=== PATIENT | male | born 1940 | race Caucasian/White ===

== ENCOUNTER 2018-10-03 11:50 | Inpatient (IN) ==
[2018-10-03] MEDS ORDERED: Ipratropium/Albuterol Neb 3 ML IH ONE (12:12)
[2018-10-03] MEDS ORDERED: methylPREDNISolone 125 MG/2 ML VIAL IVP ONE (12:12)
--- NOTE | 2018-10-03 12:12 | Emergency Department Note ---
Disposition Clinical Impression: Acute exacerbation of chronic obstructive airways disease, Chest mass Disposition: Admitted As Inpatient Condition: Good Time of Disposition: 16:49 General Adult HPI - General Stated complaint: chest pain, stroke like symtpoms Time Seen by Provider: 10/03/18 11:53 Source: patient, family, EMS Mode of arrival: EMS Limitations: no limitations Nursing Notes Reviewed: Yes Vital Signs Reviewed: Yes - History of Present Illness HPI Narrative: Male patient presents emergency complaining of shortness of breath that started last night. Does have history of COPD. Is supposed to be on oxygen but states it does not really help him so he does not wear. Has been taking his inhalers. Patient complains of back pain that is chronic. He does report a cough. He is reporting a three-day history of right sided blurred vision. No loss of vision. No pain. Also generalized weakness. Patient states that his shortness of breath got worse this morning - Related Data Home Medications Medication Instructions Recorded Confirmed Omeprazole [PriLOSEC] 20 mg PO DAILY 12/24/16 10/03/18 Tizanidine HCl [Zanaflex] 4 mg PO TID PRN 12/24/16 10/03/18 Albuterol Sulfate [Albuterol 1 - 2 puff IH Q4-6H PRN 10/03/18 10/03/18 Inhaler] Fluticasone Propionate Nasal 1 - 2 spray NS DAILY PRN 10/03/18 10/03/18 [Flonase] Guaifenesin/Dm/Pseudoephedrine 1 tab PO Q6H PRN 10/03/18 10/03/18 [Capmist Dm Tablet] Ipratropium/Albuterol Neb [Duoneb] 3 ml IH Q4HR PRN 10/03/18 10/03/18 Allergies Allergy/AdvReac Type Severity Reaction Status Date / Time cetirizine [From Zyrtec] Allergy See Verified 12/24/16 07:51 Comments clonazepam [From Klonopin] Allergy Nausea Verified 12/24/16 07:51 lisinopril Allergy See Verified 12/24/16 07:51 Comments quinine Allergy Nausea Verified 12/24/16 07:51 All systems ED: reviewed and negative except as stated. Review of Systems: As Per HPI Constitutional: Denies: fever, chills Eyes: Reports: vision change (Decreased vision and blurred vision in the right eye). Denies: eye pain Cardiovascular: Denies: chest pain Respiratory: Reports: cough, dyspnea, sputum production Gastrointestinal: Denies: abdominal pain, nausea, vomiting, diarrhea Genitourinary: Denies: urgency, dysuria, frequency, hematuria Musculoskeletal: Reports: back pain Past Medical History - Past Medical History Attestation: Yes The following information was validated with the patient. Source: patient Medical history: Reports: COPD, GERD, hypertension Surgical history: Reports: no surgical history Psychiatric history: Reports: no psych history - Social History Smoking Status: Former smoker Smokeless Tobacco Status: No Alcohol use: Reports: none Drug use: Reports: none Physical Exam - General Limitations: no limitations General appearance: alert, in distress (Appears to be short of breath) - Head Head exam: atraumatic, normocephalic, normal inspection - Eye Eye exam: Present: normal appearance, PERRL, EOMI - ENT ENT exam: normal exam, normal oropharynx, mucous membranes moist - Neck Neck exam: Present: normal inspection, full ROM, trachea midline - Chest Chest inspection: Present: normal inspection, symmetric chest wall rise - Respiratory Respiratory exam: Present: wheezes (Expiratory), other (Decreased lung sounds in the bases.) - Cardiovascular Cardiovascular exam: Present: regular rate, normal rhythm, normal heart sounds - Abdominal Exam Abdominal exam: Present: soft, Non-Tender. Absent: tenderness, distention, guarding, rebound, rigidity, organomegaly - Extremities Exam Extremities exam: Present: normal inspection, full ROM, normal capillary refill. Absent: tenderness, pedal edema, calf tenderness - Back Exam Back exam: Present: tenderness (The paraspinal muscles throughout. No midline tenderness. No signs of trauma. No ecchymosis or swelling.) - Neurological Exam Neurological exam: Present: alert, oriented X3 - Psychiatric Psychiatric exam: Present: anxious - Skin Skin exam: Present: warm, dry, intact, normal color. Absent: rash, cyanosis, diaphoresis Course Course Narrative: Patient was given 3 DuoNeb's and steroids for likely COPD exacerbation. On chest x-ray large lung masses noted. We did get a CT of his chest with contrast as well as a CTA of his head and neck secondary to his blurred vision in the right eye. He also did a bedside ultrasound performed by me and witnessed by Dr. Bryant which did not show any significant abnormalities of the right eye. Patient denies any trauma. He denies any vision loss. He denies any weakness one side of his body or the other. This is generalized weakness. Does report shortness breath got significantly worse last night. The family is concerned that there is possibly a mass near his rectum today while the was given him a bath. We did inspect this area with no masses found. The was unable to find this as well. We admitted the patient to the hospitalist prior to the CTA findings being completed however they were following with this and I did speak with Dr. Dial he was made aware of the CT findings. Vital Signs Temperature 97.6 F 10/03/18 12:03 Pulse Rate 103 10/03/18 12:03 Respiratory Rate 22 10/03/18 12:03 Blood Pressure 164/70 10/03/18 12:03 O2 Sat by Pulse Oximetry 99 10/03/18 12:03 Temperature 97.4 F L 10/03/18 18:50 Pulse Rate 105 10/03/18 18:50 Respiratory Rate 15 10/03/18 18:50 Blood Pressure 137/73 10/03/18 20:52 O2 Sat by Pulse Oximetry 94 10/03/18 21:01 Oxygen Delivery Oxygen Delivery Room Air Medical Decision Making - Medical Records Medical records reviewed: Yes I reviewed the patient's medical records. - Lab Data Lab results reviewed: Yes I reviewed the patient's lab results. Result diagrams: 10/03/18 12:07 10/03/18 12:07 Lab Results 10/03/18 10/03/18 10/03/18 Range/Units 12:07 12:07 12:07 WBC 19.2 H (4.3-11.1) K/mcL RBC 3.35 L (4.19-5.50) M/mcL Hgb 9.7 L (12.9-16.9) g/dL Hct 31.3 L (37.5-50.1) % MCV 93.4 (83.0-100.0) fL MCH 29.0 (28.0-33.3) pg MCHC 31.0 L (31.6-35.5) g/dL RDW 15.8 H (11.5-14.5) % Plt Count 421 H (140-400) K/mcL MPV 9.2 L (9.4-12.4) fL Immature Gran % 0.5 (0-4) % Seg Neutrophils % 66.9 % Lymphocytes % 7.5 % Monocytes % 15.7 % Eosinophils % 8.2 % Basophils % 1.2 % Neutrophils # 12.9 H (1.6-8.9) K/mcL Lymphocytes # 1.5 (0.6-4.6) K/mcL Monocytes # 3.0 H (0.0-1.3) K/mcL Eosinophils # 1.6 H (0.0-0.6) K/mcL Basophils # 0.2 (0.0-0.2) K/mcL Sodium 132 L (136-145) mEq/L Potassium 4.0 (3.5-5.1) mEq/L Chloride 90 L (98-107) mEq/L Carbon Dioxide 32 H (23-29) mEq/L BUN 14 (8-23) mg/dL Creatinine 0.86 (0.70-1.30) mg/dL Est GFR ( Amer) > 60 (> 60) Est GFR (Non-Af Amer) > 60 (> 60) BUN/Creatinine Ratio 16 (6-26) Glucose 117 H (70-105) mg/dL Calculated Osmolality 276 L (280-300) Lactic Acid (0.5-2.2) mmol/L Calcium 9.8 (8.6-10.3) mg/dL Troponin I 0.03 (< 0.04) ng/mL B-Natriuretic Peptide 161 H (Less than 100) pg/mL 10/03/18 10/03/18 Range/Units 12:21 14:05 WBC (4.3-11.1) K/mcL RBC (4.19-5.50) M/mcL Hgb (12.9-16.9) g/dL Hct (37.5-50.1) % MCV (83.0-100.0) fL MCH (28.0-33.3) pg MCHC (31.6-35.5) g/dL RDW (11.5-14.5) % Plt Count (140-400) K/mcL MPV (9.4-12.4) fL Immature Gran % (0-4) % Seg Neutrophils % % Lymphocytes % % Monocytes % % Eosinophils % % Basophils % % Neutrophils # (1.6-8.9) K/mcL Lymphocytes # (0.6-4.6) K/mcL Monocytes # (0.0-1.3) K/mcL Eosinophils # (0.0-0.6) K/mcL Basophils # (0.0-0.2) K/mcL Sodium (136-145) mEq/L Potassium (3.5-5.1) mEq/L Chloride (98-107) mEq/L Carbon Dioxide (23-29) mEq/L BUN (8-23) mg/dL Creatinine (0.70-1.30) mg/dL Est GFR ( Amer) (> 60) Est GFR (Non-Af Amer) (> 60) BUN/Creatinine Ratio (6-26) Glucose (70-105) mg/dL Calculated Osmolality (280-300) Lactic Acid 2.2 2.6 H (0.5-2.2) mmol/L Calcium (8.6-10.3) mg/dL Troponin I (< 0.04) ng/mL B-Natriuretic Peptide (Less than 100) pg/mL - Radiology Data Radiology results reviewed: Yes I reviewed the patient's radiology results. Chest X-Ray 10/03/18 12:12 IMPRESSION: Large 8.2 x 5.9 cm left perihilar mass. Recommend CT chest with intravenous contrast for further evaluation. D/ / 10/03/2018 12:37:58 Aureliano Vicente MD / [facility] Interpreting Provider: Aureliano Vicente MD Head CT 10/03/18 12:14 IMPRESSION: No acute intracranial abnormality. Diffuse atrophic changes with findings suggesting chronic microvascular ischemia D/ / Christ Mcdaniel MD / Christ Mcdaniel MD Interpreting Provider: Christ Mcdaniel MD - EKG Data EKG #1 EKG attestation: Yes I reviewed and interpreted this EKG. EKG results narrative: Normal sinus rhythm at a rate of 98. IN interval is 164. QRS duration is 94. QT is 358. QTC is 458. No signs of acute ischemia. Good R-wave progression. No signs of WPW or Brugada. No previous EKG to compare to. Attestation Statement - Attestation Attestation: I, Travis Bryant, examined this patient and my medical decision-making was reviewed with the TECHNICAL ENGINEER/PA/Advanced Practice Nurse/Resident Physician. I agree with the documented findings, disposition and treatment plan as described except to the extent set forth below. 77-year-old male presents emergency Department with concerns of vision changes over the past 3 days. He also reports increased difficulty in breathing. Patient states his vision in the right eye is blurred, denies recent trauma. There is not diplopia. Bedside ultrasound performed by my self and the resident did not show evidence of retinal or vitreous detachment, lens is not dislocated. Chest x-ray shows likely large mass. CTA of the head, neck, chest shows likely metastatic disease. No intracranial hemorrhage present and imaging. Patient was updated regarding CT results. He will be admitted to hospitalist for further care and evaluation.I reviewed the EKG with the resident and agree with the interpretation.
[2018-10-03 12:43] LABS: Basophils # 0.2 K/mcL (0.0-0.2); Basophils % 1.2 %; Eosinophils # 1.6 K/mcL (0.0-0.6); Eosinophils % 8.2 %; Hematocrit 31.3 % (37.5-50.1); Hemoglobin 9.7 g/dL (12.9-16.9); Immature Granulocytes % 0.5 % (0-4); Lymphocytes # 1.5 K/mcL (0.6-4.6); Lymphocytes % 7.5 %; Mean Corpuscular Volume 93.4 fL (83.0-100.0); Mean Platelet Volume 9.2 fL (9.4-12.4); Monocytes % 15.7 %; Neutrophils # 12.9 K/mcL (1.6-8.9); Platelet Count 421 K/mcL (140-400); Red Blood Count 3.35 M/mcL (4.19-5.50); Red Cell Distribution Width 15.8 % (11.5-14.5); Segmented Neutrophils % 66.9 %; White Blood Count 19.2 K/mcL (4.3-11.1)
[2018-10-03 13:17] LABS: BUN/Creatinine Ratio 16 (6-26); Blood Urea Nitrogen 14 mg/dL (8-23); Calcium 9.8 mg/dL (8.6-10.3); Carbon Dioxide 32 mEq/L (23-29); Chloride 90 mEq/L (98-107); Glucose 117 mg/dL (70-105); Osmolality,Calculated 276 (280-300); Sodium 132 mEq/L (136-145); Troponin I 0.03 ng/mL (< 0.04); eGFR For African Americans > 60 (> 60); eGFR For Non-African Americans > 60 (> 60)
[2018-10-03] MEDS ORDERED: Isovue-370 500 ML BOTTLE IVP ONE ×2 (13:41→13:42)
[2018-10-03] MEDS ORDERED: *HR* HYDROmorphone (PF) 1 MG/ML SYRINGE IVP STA (14:06)
--- NOTE | 2018-10-03 14:52 | Internal Med History&Physical ---
<Ayad Dial - Last Filed: 10/03/18 18:40> Date of Encounter: 10/03/18 Internal Medicine - H&P: HPI History of present illness: Mr. Resendiz is a 77 year old male Past Med Surg Social Fam HX - Additional Family History Additional family history: History reviewed and noncontributory. Internal Medicine - H&P: Meds Omeprazole [PriLOSEC] 20 mg PO DAILY 12/24/16 [History] Tizanidine HCl [Zanaflex] 4 mg PO TID PRN 12/24/16 [History] Albuterol Sulfate [Albuterol Inhaler] 1 - 2 puff IH Q4-6H PRN 10/03/18 [History] Fluticasone Propionate Nasal [Flonase] 1 - 2 spray NS DAILY PRN 10/03/18 [History] Guaifenesin/Dm/Pseudoephedrine [Capmist Dm Tablet] 1 tab PO Q6H PRN 10/03/18 [History] Ipratropium/Albuterol Neb [Duoneb] 3 ml IH Q4HR PRN 10/03/18 [History] Allergy/AdvReac Type Severity Reaction Status Date / Time cetirizine [From Zyrtec] Allergy See Verified 12/24/16 07:51 Comments clonazepam [From Klonopin] Allergy Nausea Verified 12/24/16 07:51 lisinopril Allergy See Verified 12/24/16 07:51 Comments quinine Allergy Nausea Verified 12/24/16 07:51 All Systems PM: A 10-system review of systems was performed and is negative for pertinent findings except as documented above in the HPI. - Constitutional Vitals: Temp Pulse Resp BP Pulse Ox 97.6 F 99 20 183/92 95 10/03/18 17:24 10/03/18 17:24 10/03/18 17:24 10/03/18 17:24 10/03/18 17:24 Internal Med - H&P Results - Labs CBC & Chem 7: 10/03/18 12:07 10/03/18 12:07 Labs: Short CBC 10/03/18 Range/Units 12:07 WBC 19.2 H (4.3-11.1) K/mcL Hgb 9.7 L (12.9-16.9) g/dL Hct 31.3 L (37.5-50.1) % Plt Count 421 H (140-400) K/mcL Neutrophils # 12.9 H (1.6-8.9) K/mcL BMP 10/03/18 12:07 Sodium 132 L Potassium 4.0 Chloride 90 L Carbon Dioxide 32 H BUN 14 Creatinine 0.86 Glucose 117 H Calcium 9.8 Cardiac Enzymes 10/03/18 Range/Units 12:07 Troponin I 0.03 (< 0.04) ng/mL Urine 10/03/18 Range/Units 17:53 Urine Color Yellow (Yellow) Urine Clarity Clear (Clear) Urine pH 7.5 (5.0-8.0) pH Units Ur Specific [place] > 1.030 H (1.010-1.025) Urine Protein 30 H (Neg-Trace) mg/dL Urine Glucose (UA) Normal (Normal) mg/dL - Impressions ITS Impressions Chest X-Ray 10/03/18 12:12 IMPRESSION: Large 8.2 x 5.9 cm left perihilar mass. Recommend CT chest with intravenous contrast for further evaluation. D/ / 10/03/2018 12:37:58 Aureliano Vicente MD / [facility] Interpreting Provider: Aureliano Vicente MD Head CT 10/03/18 12:14 IMPRESSION: No acute intracranial abnormality. Diffuse atrophic changes with findings suggesting chronic microvascular ischemia D/ / Christ Mcdaniel MD / Christ Mcdaniel MD Interpreting Provider: Christ Mcdaniel MD Chest CT 10/03/18 13:41 IMPRESSION: 1. Large mass in the left upper lobe abutting both the mediastinum and the anterior pleural surface. Pattern is suspected to represent bronchogenic carcinoma. Pulmonary follow-up is recommended with tissue sampling. 2. Multiple tiny solid nodules are otherwise observed within both the left upper and lower lobes, of concern for metastatic disease. 3. Mediastinal lymph node enlargement also suspected to be metastatic. 4. Numerous ill-defined lesions are scattered throughout the visualized liver also suspected to represent metastatic disease. D/ / Jayro Harrison MD / Jayro Harrison MD Interpreting Provider: Jayro Harrison MD Head CTA 10/03/18 13:42 IMPRESSION: 1. No hemodynamically significant stenosis or branch occlusion in the cervical arterial circulation. 2. Calcified atherosclerotic plaque in the cavernous segments of the internal carotid arteries bilaterally resulting in moderate cavernous ICA stenosis. 3. No additional hemodynamically significant stenosis or branch occlusion in the intracranial arterial circulation. 4. Partial visualization of left upper lobe mass. Please refer to separate chest CT report regarding pulmonary findings. D/ / 10/03/2018 15:52:03 William Klein MD / [facility] Interpreting Provider: William Klein MD Neck CTA 10/03/18 13:42 IMPRESSION: 1. No hemodynamically significant stenosis or branch occlusion in the cervical arterial circulation. 2. Calcified atherosclerotic plaque in the cavernous segments of the internal carotid arteries bilaterally resulting in moderate cavernous ICA stenosis. 3. No additional hemodynamically significant stenosis or branch occlusion in the intracranial arterial circulation. 4. Partial visualization of left upper lobe mass. Please refer to separate chest CT report regarding pulmonary findings. D/ / 10/03/2018 15:52:03 William Klein MD / [facility] Interpreting Provider: William Klein MD - Assessment and Plan (1) Pneumonia Current Visit: Yes Status: Suspected Qualifiers: Pneumonia type: due to other aerobic Gram-negative bacteria Laterality: left Lung location: upper lobe of lung Qualified Code(s): J15.6 - Pneumonia due to other Gram-negative bacteria (2) Mass of upper lobe of left lung Current Visit: Yes Status: Acute (3) COPD (chronic obstructive pulmonary disease) Current Visit: Yes Status: Chronic Qualifiers: COPD type: emphysema Emphysema type: panlobular Qualified Code(s): J43.1 - Panlobular emphysema (4) Chronic respiratory failure with hypoxia Current Visit: Yes Status: Chronic (5) Anemia Current Visit: Yes Status: Suspected Qualifiers: Anemia type: other cause Other causes of anemia: chronic disease, neoplastic Qualified 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 (6) Tobacco use Current Visit: Yes Status: Chronic (7) Hyponatremia Current Visit: Yes Status: Acute (8) HTN (hypertension) Current Visit: Yes Status: Chronic Qualifiers: Hypertension type: essential hypertension Qualified Code(s): I10 - Essential (primary) hypertension - Time Spent With Patient Total time spent is greater than 50% in coordination of care (as documented) at patient's floor/unit and/or counseling patient: - Attending Attestation I examined this patient and my medical decision-making was reviewed with the Resident Physician on 10/03/18. I agree with the documented findings, disposition and treatment plan as described except to the extent set forth below. Mr Resendiz is 77 y/o male presented to ED with complaints of worsening dyspnea. He is very difficult to obtain history. He has had progressive dyspnea and pain over last couple weeks. No fever or chills. No CP. No GI issues. Does not eat well at home. is at bedside. Has hx of chronic resp failure and is to wear oxygen but does not consistently. Has had 3 days of blurry vision R eye - was stroke alert in ED. Stroke work up negative but found to have large BIBIANA mass. CT shows adenopathy and presumed liver mets. At this time he is feeling baseline. Exam - comfortable at rest. Mucus membranes moist Heart reg with grade 3/6 systolic murmur consistent with . Abd non tender. Decreased breath sounds on L. Plan: Supportive care. NPO midnight. Pulm consult - biopsy. Echo for murmur. Further plan pending results Has leukocytosis - could have component of pneumonia and/or UTI. Abx started. <Gisela Perera - Last Filed: 10/03/18 21:51> Date of Encounter: 10/03/18 Time of Encounter: 15:00 Internal Medicine - H&P: HPI Chief complaint: shortness of breath Admitted From: Home History of present illness: Mr. Resendiz is a 77 year old male with history of COPD, CAD ([facility] 12/2016 no stents), HTN, GERD, and prostate disease who presents by EMS for increased shortness of breath x 2 weeks and blurred vision from right eye (which he denied at time of my exam). Pt's reports his shortness of breath has been present for weeks, started getting worse over the last few days, and became significan tly worse overnight. Pt denies orthopnea. Although pt is supposed to wear 2L oxygen continuously, reports he doesn't wear it and relies on his albuterol nebulizer. Normally pt uses his nebulizer once a day, but used it 3-4x last night. No increase in cough or sputum production from patient's baseline. Denies fever, but admits to "freezing" over last few days, states he was very warm to the touch and his bedsheets have been drenched with sweat lately. Pt has also been sleeping significantly more than normal over the last several weeks, his appetite has decreased, and family reports he's had increasing weakness over the last several weeks as well. Per the patient's , he has gone to his family doctor several times over the last few months for antibiotics, steroids, and "cough pills"--unclear when he last received these. On arrival to the emergency department, pt was afebrile, HR 103, RR 22, 99% room air. Stoke alert was called d/t his complaints of right eye blurriness. CT head negative for acute intracranial abnormalities, CTA head/neck negative for hemodynamically significant occlusions or stenosis. CXR significant for 8.2 x 5.9 cm left perihilar mass. CT chest showed large mass of left upper lobe, many small solid nodules throughout left lung, enlarged mediastinal lymph nodes, and multiple poorly-defined liver lesions. Labs significant for WBC 19.2, Hgb 9.7, platelets 421, Na 132, bicarb 32, lactic acid 2.0 -> 2.4 -> 1.4, negative troponin. He was admitted to the hospitalist service for further evaluation and management. Past Med Surg Social Fam HX - Past Medical History Medical history: COPD, GERD, hypertension Psychiatric history: no psych history - Past Surgical History Surgical History: no surgical history - Social History Smoking Status: Former smoker Smokeless Tobacco Status: No Alcohol use: none Drug use: none All Systems PM: A 10-system review of systems was performed and is negative for pertinent findings except as documented above in the HPI. - Constitutional Constitutional: anorexia, chills, excessive sweating, fatigue, weakness, no fever(s) - EENT Eyes: blurry vision (right) - Cardiovascular Cardiovascular ROS IM: chest pain (left and down left arm), dyspnea on exertion - Respiratory Respiratory: cough, dyspnea, dyspnea on exertion, chest congestion, no excessive phlegm production, no change in phlegm color - Gastrointestinal Gastrointestinal: abdominal pain (lower), no diarrhea, no hematochezia, no melena - Musculoskeletal Musculoskeletal ROS IM: back pain (chronic) - Neurological Neurological ROS: abnormal gait, behavioral changes, disequilibrium, no focal weakness - Constitutional Vitals: Temp Pulse Resp BP Pulse Ox 97.6 F 103 18 159/75 97 10/03/18 12:03 10/03/18 12:03 10/03/18 12:22 10/03/18 12:22 10/03/18 12:22 Exam: Gen: tired-appearing, alert Head: normocephalic, atraumatic Eyes: PERRL, EOMI Neck: supple Cardio: RRR, systolic murmur over aortic listening post, +s1/s2, no peripheral edema, no carotid bruits Pulm: Decreased breath sound bilaterally, no rhonchi, no wheezes, no rales, no respiratory distress Abd: obese, soft, nontender Neuro: AAO x 3, CN II-XII grossly intact, moves all extremities spontaneously, no facial droop, no focal neuro deficit Ext: no calf pain, no cyanosis, cool Skin: pale, intact Psych: cooperative with exam, answers questions appropriately Internal Med - H&P Results - Labs CBC & Chem 7: 10/03/18 12:07 10/03/18 12:07 Labs: Short CBC 10/03/18 Range/Units 12:07 WBC 19.2 H (4.3-11.1) K/mcL Hgb 9.7 L (12.9-16.9) g/dL Hct 31.3 L (37.5-50.1) % Plt Count 421 H (140-400) K/mcL Neutrophils # 12.9 H (1.6-8.9) K/mcL BMP 10/03/18 12:07 Sodium 132 L Potassium 4.0 Chloride 90 L Carbon Dioxide 32 H BUN 14 Creatinine 0.86 Glucose 117 H Calcium 9.8 Cardiac Enzymes 10/03/18 Range/Units 12:07 Troponin I 0.03 (< 0.04) ng/mL - Impressions ITS Impressions Chest X-Ray 10/03/18 12:12 IMPRESSION: Large 8.2 x 5.9 cm left perihilar mass. Recommend CT chest with intravenous contrast for further evaluation. D/ / 10/03/2018 12:37:58 Aureliano Vicente MD / [facility] Interpreting Provider: Aureliano Vicente MD Head CT 10/03/18 12:14 IMPRESSION: No acute intracranial abnormality. Diffuse atrophic changes with findings suggesting chronic microvascular ischemia D/ / Christ Mcdaniel MD / Christ Mcdaniel MD Interpreting Provider: Christ Mcdaniel MD - Assessment and Plan (1) Mass of left lung Current Visit: Yes Status: Acute Assessment and plan: Lung mass concerning for malignancy with possible mets. CXR shows 8.2 x 5.9 cm left perihilar mass. CT chest shows large mass left upper lobe concerning for bronchogenic carcinoma; multiple tiny solid nodules within BIBIANA and LLL; mediastinal lymph node enlargem ent; scattered liver lesions. Pulmonology consult placed. NPO at midnight for possible bronchoscopy tomorrow. (2) Leukocytosis Current Visit: Yes Status: Acute Assessment and plan: WBC 19.2 on admission, labs performed earlier this month show WBC 13.9 Neutrophil predominant. Infectious etiology (PNA) vs recent steroid use vs ? Recheck with morning labs. Urine and blood cultures ordered. Zosyn started empirically for treatment of pot-obstructive pneumonia. Qualifiers: Leukocytosis type: unspecified Qualified Code(s): D72.829 - Elevated white blood cell count, unspecified (3) Hyponatremia Current Visit: Yes Status: Acute Assessment and plan: Mild hyponatremia on admission Euvolemic on exam Na 132, calculated osmolality 276, urine Na 100, urine osmolality 611 Possible SIADH given CXR and CT imaging of lung mass Monitor with morning labs. (4) Chronic respiratory failure with hypoxia Current Visit: Yes Status: Chronic Assessment and plan: History of COPD, non-compliance with supplemental oxygen. SpO2 94% on 2L nasal cannula Continue supplemental oxygen by nasal cannula Scheduled duonebs and PRN albuterol nebs (5) Anemia Current Visit: Yes Status: Acute Assessment and plan: Unknown chronicity, unknown baseline. Hgb 9.7 on admission, Hgb 10.9 earlier this month. No overt signs of acute bleed, pt hemodynamically stable. Recheck on morning labs and monitor for signs of blood loss. Qualifiers: Anemia type: other cause Other causes of anemia: chronic disease, neoplastic Qualified 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 (6) COPD (chronic obstructive pulmonary disease) Current Visit: Yes Status: Chronic Assessment and plan: Doubt acute exacerbation, cough and sputum production are at his baseline. Home oxygen prescription to wear 2L at all times, doesn't use his home O2. Albuterol nebulizers PRN and duonebs scheduled Qualifiers: COPD type: emphysema Emphysema type: panlobular Qualified Code(s): J43.1 - Panlobular emphysema (7) Tobacco use Current Visit: Yes Status: Chronic Assessment and plan: Smoked at least 1 ppd for > 50 years. states pt would smoke 2-3 ppd when he was in his 20's. - Time Spent With Patient Total time spent is greater than 50% in coordination of care (as documented) at patient's floor/unit and/or counseling patient:
[2018-10-03] MEDS ORDERED: Naloxone 0.4 MG/ML INJ IVP PRN (16:00)
[2018-10-03] MEDS ORDERED: Albuterol 2.5 MG/3 ML NEBULIZER IH PRN (17:12)
[2018-10-03] MEDS ORDERED: 0.9 % Sodium Chloride 1,000 ML IVC SCH (18:00)
[2018-10-03 18:13] LABS: Bilirubin,Urine Negative (Negative); Blood,Urine Negative (Negative); Clarity,Urine Clear (Clear); Color,Urine Yellow (Yellow); Glucose,Urine (UA) Normal (Normal); Ketones,Urine Negative (Negative); Leukocyte Esterase,Urine Negative (Negative); Nitrite,Urine Negative (Negative); PH,Urine 7.5 pH Units (5.0-8.0); Protein,Urine 30 mg/dL (Neg-Trace); Specific Gravity,Urine > 1.030 (1.010-1.025); Urobilinogen,Urine Normal (Normal)
[2018-10-03 18:14] LABS: Bacteria,Urine None Seen per hpf (None-Few); Hyaline Casts,Urine None Seen per lpf (None-Few); Squamous Epithelial Cell,Urine Many per lpf (None-Few)
[2018-10-03] MEDS ORDERED: Acetaminophen 325 MG TABLET PO PRN (18:14)
[2018-10-03] MEDS ORDERED: Fluticasone Propionate Nasal 50 MCG/SPRAY BOTTLE NS PRN (18:16)
[2018-10-03] MEDS: *HR* OxyCODONE Immed Rel 5 MG TABLET PO PRN (18:26)
[2018-10-03] MEDS ORDERED: tiZANidine 4 MG TABLET PO PRN (18:50)
[2018-10-03] MEDS: Ipratropium/Albuterol Neb 3 ML IH SCH (23:02)
[2018-10-04] MEDS: *HR* OxyCODONE Immed Rel 5 MG TABLET PO PRN ×3 (02:34→15:58)
[2018-10-04] MEDS: Ipratropium/Albuterol Neb 3 ML IH SCH ×4 (04:02→22:20)
[2018-10-04 04:38] LABS: Basophils # 0.1 K/mcL (0.0-0.2); Basophils % 0.3 %; Hematocrit 30.7 % (37.5-50.1); Hemoglobin 9.6 g/dL (12.9-16.9); Immature Granulocytes % 1.1 % (0-4); Lymphocytes # 0.8 K/mcL (0.6-4.6); Mean Corpuscular HGB Conc 31.3 g/dL (31.6-35.5); Mean Corpuscular Hemoglobin 28.6 pg (28.0-33.3); Mean Corpuscular Volume 91.4 fL (83.0-100.0); Mean Platelet Volume 9.2 fL (9.4-12.4); Monocytes # 2.2 K/mcL (0.0-1.3); Monocytes % 11.1 %; Neutrophils # 16.8 K/mcL (1.6-8.9); Platelet Count 425 K/mcL (140-400); Red Blood Count 3.36 M/mcL (4.19-5.50); Red Cell Distribution Width 15.5 % (11.5-14.5); Segmented Neutrophils % 83.5 %; White Blood Count 20.1 K/mcL (4.3-11.1)
[2018-10-04 04:47] LABS: INR 1.3; Prothrombin Time 14.5 Seconds (9.4-12.1)
[2018-10-04 04:49] LABS: Activated Partial Thrombo Time 31.2 Seconds (26.0-36.0)
[2018-10-04 04:56] LABS: Alanine Aminotransferase 23 Units/L (7-52); Albumin 3.1 g/dL (3.5-5.7); Albumin/Globulin Ratio 0.8 (1.1-2.2); Alkaline Phosphatase 92 Units/L (34-104); Aspartate Amino Transferase 15 Units/L (13-39); BUN/Creatinine Ratio 20 (6-26); Bilirubin,Total 0.5 mg/dL (0.3-1.0); Blood Urea Nitrogen 14 mg/dL (8-23); Calcium 9.8 mg/dL (8.6-10.3); Carbon Dioxide 28 mEq/L (23-29); Chloride 93 mEq/L (98-107); Globulin 4.1 g/dL (2.4-3.5); Glucose 148 mg/dL (70-105); Osmolality,Calculated 271 (280-300); Potassium 4.5 mEq/L (3.5-5.1); Sodium 129 mEq/L (136-145); Total Protein 7.2 g/dL (6.4-8.9); eGFR For African Americans > 60 (> 60); eGFR For Non-African Americans > 60 (> 60)
[2018-10-04] MEDS: *HR* Heparin 5,000 UNIT/ML VIAL SQ SCH ×2 (05:06→17:18)
--- NOTE | 2018-10-04 06:54 | Pulmonology Consult Note ---
Date of Encounter: 10/04/18 Time of Encounter: 06:30 Assessment and Plan (1) Mass of upper lobe of left lung Current Visit: Yes Status: Acute Patient is scheduled for a radial endobronchial ultrasound tomorrow morning at 7:45 AM to keep nothing by mouth after midnight. Most likely looks like small cell lung cancer needs outpatient PET CT scan suspicious for extensive small cell. If it is extensive small cell lung cancer patient has poor prognosis (2) Acute and chronic respiratory failure Current Visit: Yes Status: Acute Complicated by COPD exacerbation now with the left upper lobe lung mass mostly the necrotic some mediastinal lymphadenopathy. To continue O2 supplementation to keep saturation above 88% Qualifiers: Respiratory failure complication: hypoxia Qualified Code(s): J96.21 - Acute and chronic respiratory failure with hypoxia (3) Acute exacerbation of chronic obstructive airways disease Current Visit: Yes Status: Acute Patient clinical symptoms and signs supporting to COPD exacerbation to continue with scheduled bronchodilators and I reinforced with the team to give schedule bronchodilators. To give steroids and antibiotics patient will need and radial endobronchial ultrasound for accessing this the difficult mass for biopsy. History of Present Illness Consult date: 10/04/18 Requesting physician: Gisela Perera Chief complaint: Shortness of breath History of present illness: 77-year-old male with past medical history significant COPD supposed to be on oxygen, chronic smoker comes with worsening shortness of breath started a few days initial workup CT chest showed large left upper lobe lung mass possibly necrotic with some prevascular lymph nodes has some possible metastatic liver lesions patient has a shortness of breath has some cough but not much sputum production denies any hemoptysis denies any active chest pain chest tightness denies any palpitations syncope patient denies any headache or focal neurological deficit denies any skin symptoms patient denies any swelling in the head and neck area. Patient denies any abdominal pain pulmonary was consult and for the biopsy of the left upper lobe lung mass. Past Med Surg Social Fam HX - Past Medical History Medical history: arthritis, COPD, GERD, hypertension Psychiatric history: no psych history - Past Surgical History Surgical History: no surgical history - Social History Smoking Status: Former smoker Smokeless Tobacco Status: No Alcohol use: none Drug use: none Medications and Allergies Omeprazole [PriLOSEC] 20 mg PO DAILY 12/24/16 [History] Tizanidine HCl [Zanaflex] 4 mg PO TID PRN 12/24/16 [History] Albuterol Sulfate [Albuterol Inhaler] 1 - 2 puff IH Q4-6H PRN 10/03/18 [History] Fluticasone Propionate Nasal [Flonase] 1 - 2 spray NS DAILY PRN 10/03/18 [History] Guaifenesin/Dm/Pseudoephedrine [Capmist Dm Tablet] 1 tab PO Q6H PRN 10/03/18 [History] Ipratropium/Albuterol Neb [Duoneb] 3 ml IH Q4HR PRN 10/03/18 [History] Allergy/AdvReac Type Severity Reaction Status Date / Time cetirizine [From Zyrtec] Allergy See Verified 12/24/16 07:51 Comments clonazepam [From Klonopin] Allergy Nausea Verified 12/24/16 07:51 lisinopril Allergy See Verified 12/24/16 07:51 Comments quinine Allergy Nausea Verified 12/24/16 07:51 All Systems: The remainder of the systems were reviewed and are negative Physical Examination Vital Signs: Vital Signs, Last 4 Hours Temp Pulse Resp BP Pulse Ox 10/04/18 05:28 98.2 F 92 16 106/65 91 10/04/18 04:03 19 92 General appearance: no acute distress Effort: mildly labored Auscultation: bilateral: wheezes Cardiovascular: regular rate and rhythm Gastrointestinal: normoactive bowel sounds, other (Obese abdomen) Extremities: no edema normal mental status, non-focal exam mood appropriate Results - Laboratory Findings CBC and BMP: 10/04/18 03:58 10/04/18 03:58 PT/INR, D-dimer PT 14.5 Seconds (9.4-12.1) H 10/04/18 03:58 Abnormal lab findings: Abnormal lab results WBC 20.1 K/mcL (4.3-11.1) H 10/04/18 03:58 RBC 3.36 M/mcL (4.19-5.50) L 10/04/18 03:58 Hgb 9.6 g/dL (12.9-16.9) L 10/04/18 03:58 Hct 30.7 % (37.5-50.1) L 10/04/18 03:58 MCHC 31.3 g/dL (31.6-35.5) L 10/04/18 03:58 RDW 15.5 % (11.5-14.5) H 10/04/18 03:58 Plt Count 425 K/mcL (140-400) H 10/04/18 03:58 MPV 9.2 fL (9.4-12.4) L 10/04/18 03:58 16.8 K/mcL (1.6-8.9) H 10/04/18 03:58 2.2 K/mcL (0.0-1.3) H 10/04/18 03:58 1.6 K/mcL (0.0-0.6) H 10/03/18 12:07 PT 14.5 Seconds (9.4-12.1) H 10/04/18 03:58 Sodium 129 mEq/L (136-145) L 10/04/18 03:58 Chloride 93 mEq/L (98-107) L 10/04/18 03:58 Carbon Dioxide 32 mEq/L (23-29) H 10/03/18 12:07 Glucose 148 mg/dL (70-105) H 10/04/18 03:58 POC Glucose 204 mg/dL (70-99) H 10/03/18 20:20 271 (280-300) L 10/04/18 03:58 Lactic Acid 2.6 mmol/L (0.5-2.2) H 10/03/18 14:05 B-Natriuretic Peptide 161 pg/mL (Less than 100) H 10/03/18 12:07 3.1 g/dL (3.5-5.7) L 10/04/18 03:58 4.1 g/dL (2.4-3.5) H 10/04/18 03:58 0.8 (1.1-2.2) L 10/04/18 03:58 Ur Specific [place] > 1.030 (1.010-1.025) H 10/03/18 17:53 30 mg/dL (Neg-Trace) H 10/03/18 17:53 3-5 per hpf (0-3) H 10/03/18 17:53 5-15 per hpf (0-3) H 10/03/18 17:53 Ur Squamous Epith Cells Many per lpf (None-Few) H 10/03/18 17:53 Ur Culture Indicated? YES (NO) A 10/03/18 17:53 - Microbiology Findings Microbiology Findings: Microbiology, Last 48 Hours 10/03/18 17:53 Urine Culture - Preliminary Urine,Clean Catch Culture is incubating. 10/03/18 17:48 Blood Culture - Preliminary Peripheral Venipuncture Culture is incubating and being continuously monitored for growth. Final report to follow. 10/03/18 17:48 Blood Culture - Preliminary Peripheral Venipuncture Culture is incubating and being continuously monitored for growth. Final report to follow. - Clinical Findings Intake & Output: Intake & Output 10/03/18 10/03/18 10/04/18 15:59 23:59 07:59 Intake Total 480 / 480 0 / 0 Output Total 0 / 0 0 / 0 Balance 480 / 480 0 / 0 Weight 121.245 kg 122.1 kg Consult Discharge Plan - Plan Referrals: Dyllan Rodriguez DO [Primary Care Provider] -
--- NOTE | 2018-10-04 08:54 | Internal Med Progress Note ---
<Ayad Dial - Last Filed: 10/04/18 13:28> Hospitalist Progress Note - Encounter Date of Encounter: 10/04/18 - Exam Vitals: Temp Pulse Resp BP Pulse Ox 97.7 F 103 20 124/66 96 10/04/18 11:07 10/04/18 11:07 10/04/18 11:41 10/04/18 11:07 10/04/18 11:41 - Assessment and Plan (1) Pneumonia Current Visit: Yes Status: Suspected (2) Mass of upper lobe of left lung Current Visit: Yes Status: Acute (3) COPD (chronic obstructive pulmonary disease) Current Visit: Yes Status: Chronic (4) Chronic respiratory failure with hypoxia Current Visit: Yes Status: Chronic (5) Anemia Current Visit: Yes Status: Acute (6) Tobacco use Current Visit: Yes Status: Chronic (7) Hyponatremia Current Visit: Yes Status: Acute (8) HTN (hypertension) Current Visit: Yes Status: Chronic (9) Small cell lung cancer, left upper lobe Current Visit: Yes Status: Suspected - Time Spent with Patient Total time spent is greater than 50% in coordination of care (as documented) at patient's floor/unit and/or counseling patient: Internal Medicine: Result - Labs CBC & Chem 7: 10/04/18 03:58 10/04/18 03:58 Labs: Short CBC 10/04/18 Range/Units 03:58 WBC 20.1 H (4.3-11.1) K/mcL Hgb 9.6 L (12.9-16.9) g/dL Hct 30.7 L (37.5-50.1) % Plt Count 425 H (140-400) K/mcL Neutrophils # 16.8 H (1.6-8.9) K/mcL BMP 10/04/18 03:58 Sodium 129 L Potassium 4.5 Chloride 93 L Carbon Dioxide 28 BUN 14 Creatinine 0.71 Glucose 148 H Calcium 9.8 Cardiac Enzymes 10/03/18 Range/Units 17:48 Troponin I < 0.03 (< 0.04) ng/mL Liver Function 10/04/18 Range/Units 03:58 Total Bilirubin 0.5 (0.3-1.0) mg/dL AST 15 (13-39) Units/L ALT 23 (7-52) Units/L Alkaline Phosphatase 92 (34-104) Units/L Albumin 3.1 L (3.5-5.7) g/dL Urine 10/03/18 Range/Units 17:53 Urine Color Yellow (Yellow) Urine Clarity Clear (Clear) Urine pH 7.5 (5.0-8.0) pH Units Ur Specific Patterson > 1.030 H (1.010-1.025) Urine Protein 30 H (Neg-Trace) mg/dL Urine Glucose (UA) Normal (Normal) mg/dL - ABG Interpretation ABG results: PT/INR, D-dimer PT 14.5 Seconds (9.4-12.1) H 10/04/18 03:58 - Impressions Impressions Chest X-Ray 10/03/18 12:12 IMPRESSION: Large 8.2 x 5.9 cm left perihilar mass. Recommend CT chest with intravenous contrast for further evaluation. D/ / 10/03/2018 12:37:58 Aureliano Vicente MD / eri Interpreting Provider: Aureliano Vicente MD Head CT 10/03/18 12:14 IMPRESSION: No acute intracranial abnormality. Diffuse atrophic changes with findings suggesting chronic microvascular ischemia D/ / Christ Mcdaniel MD / Christ Mcdaniel MD Interpreting Provider: Christ Mcdaniel MD Chest CT 10/03/18 13:41 IMPRESSION: 1. Large mass in the left upper lobe abutting both the mediastinum and the anterior pleural surface. Pattern is suspected to represent bronchogenic carcinoma. Pulmonary follow-up is recommended with tissue sampling. 2. Multiple tiny solid nodules are otherwise observed within both the left upper and lower lobes, of concern for metastatic disease. 3. Mediastinal lymph node enlargement also suspected to be metastatic. 4. Numerous ill-defined lesions are scattered throughout the visualized liver also suspected to represent metastatic disease. D/ / Jayro Harrison MD / Jayro Harrison MD Interpreting Provider: Jayro Harrison MD Head CTA 10/03/18 13:42 IMPRESSION: 1. No hemodynamically significant stenosis or branch occlusion in the cervical arterial circulation. 2. Calcified atherosclerotic plaque in the cavernous segments of the internal carotid arteries bilaterally resulting in moderate cavernous ICA stenosis. 3. No additional hemodynamically significant stenosis or branch occlusion in the intracranial arterial circulation. 4. Partial visualization of left upper lobe mass. Please refer to separate chest CT report regarding pulmonary findings. D/ / 10/03/2018 15:52:03 William Klein MD / kaylyn Interpreting Provider: William Klein MD Neck CTA 10/03/18 13:42 IMPRESSION: 1. No hemodynamically significant stenosis or branch occlusion in the cervical arterial circulation. 2. Calcified atherosclerotic plaque in the cavernous segments of the internal carotid arteries bilaterally resulting in moderate cavernous ICA stenosis. 3. No additional hemodynamically significant stenosis or branch occlusion in the intracranial arterial circulation. 4. Partial visualization of left upper lobe mass. Please refer to separate chest CT report regarding pulmonary findings. D/ / 10/03/2018 15:52:03 William Klein MD / jackie moreno Interpreting Provider: William Klein MD Consult Discharge Plan - Plan Referrals: Dyllan Rodriguez DO [Primary Care Provider] - - Attending Attestation I examined this patient and my medical decision-making was reviewed with the Resident Physician on 10/04/18. I agree with the documented findings, disposition and treatment plan as described except to the extent set forth below. Mr Resendiz is currently admitted for lung mass with concern for pneumonia and lung cancer. He remains moderate to high risk due to potential for worsening clinical and respiratory status. Mr Resendiz is having some itching in his back. Wheezing today. Breathing otherwise the same. Exam as above. Appreciate pulm input. Plan for bronch and EBUS tomorrow. Anticipate consult oncology. Family at bedside. Suspect this is metastatic small cell lung cancer. <Rachel Vernon - Last Filed: 10/04/18 18:00> Hospitalist Progress Note - Encounter Date of Encounter: 10/04/18 Time of Encounter: 08:54 - Subjective Interval History: Patient was seen and examined at bedside this morning. He was resting comfortably in no acute distress. Vitals were stable, and oxygen saturation was appropriate on 2 L via nasal cannula. At the time of my visit, pulmonology also came in to speak with patient. Given the patient's lung mass, they will plan on procedure to try to take biopsy of mass. We will likely plan for procedure tomorrow. Meanwhile, we will treat hypoxia and wheezing at this time. Patient otherwise denies any headaches, blurry vision, chest pain comes on pain, nausea, vomiting, diarrhea. - Exam Vitals: Temp Pulse Resp BP Pulse Ox 98.2 F 84 18 138/75 95 10/04/18 07:08 10/04/18 07:08 10/04/18 07:08 10/04/18 07:08 10/04/18 08:23 Exam: GEN: Pleasant 77-year-old male resting comfortably at bedside. Accompanied by daughter and . Vitals stable. No acute distress. AAOx3 HEENT: Atraumatic, Normocephalic, PERRLA, EOMI NECK: Supple, no lymphadenopathy, no JVD CARDIAC: RRR, s1 and s2 present, no rubs, gallops. 3/6 systolic murmur heard best in the right parasternal region. PULM: Wheezing bilaterally, not in respiratory distress, no rales, crackles, rhonchi. Oxygen saturation appropriate on 2 L via nasal cannula ABD: Soft, non-tender, non-distended, no guarding or rebound tenderness. Bowel sounds present EXT: No peripheral edema. No calf tenderness, cyanosis, clubbing NEURO: CN 2-12 grossly intact. No focal neurologic deficits. Follows commands PSYCH: Appropriate mood and affect - Assessment and Plan (1) Mass of upper lobe of left lung Current Visit: Yes Status: Acute Assessment and Plan: This is a 77-year-old male with past medical history significant for COPD (on home oxygen, but does not use it), CAD (left heart catheter in December 2016 with no stents placed), hypertension, GERD who initially presented via EMS for increased shortness of breath for 2 weeks prior to presentation, blurred vision from right eye. - Shortness of breath had been progressively worsening for weeks, and worsening over the past couple days - Patient does not wear oxygen at home. He does use his nebulizer machine daily, and has been increasingly using it in the days leading up to presentation . Additionally uses rescue inhaler. - Associated symptoms include fevers/chills, diaphoresis, lethargy, fatigue, decreased appetite - Also notes multiple visits to PCP given persistent shortness of breath and cough. Prescribed steroids, antibiotics, medication to suppress cough - Patient has greater than 50 year smoking history - Initially in the ED, patient was hemodynamically stable. Stroke alert was initially called to right eye blurriness. - Patient did have leukocytosis = 19.2, anemia with hemoglobin = 9.7, platelets = 421. - Sodium = 132, bicarbonate = 32. Lactic acid trended down from 2.0-1.4. Troponin was negative. - Head CT (10/03/18): No acute intracranial abnormality. Diffuse atrophic changes with findings suggesting chronic microvascular ischemia - Chest x-ray (10/03/18): Large 8.2 x 5.9 cm left perihilar mass - CT chest (10/03/18): Large mass in left upper lobe abutting both the mediastinum and anterior pleural surface. Suggestive of bronchogenic carcinoma. Additionally, multiple tiny solid nodules observed within both the left upper and lower middle lobes. Mediastinal lymph node enlargement. Numerous ill- defined lesions scattered throughout liver. Additional findings represent possible metastatic disease. - CTA of the head/neck (10/03/18): No hemodynamically significant stenosis or branch occlusion and cervical arterial circulation, or intracranial arterial circulation. Calcified atherosclerotic plaque in the cavernous segment of internal carotid arteries bilaterally resulting in moderate cavernous ICA stenosis. PLAN: Patient presents with lung mass concerning for malignancy with metastasis. Chest x-ray and CT confirmed this suspicion. He will require further evaluation by pulmonology and possibly cardiothoracic surgery. This is possibly suggestive of small cell carcinoma. - Pulmonology consulted. Recommendations appreciated. - Bronchoscopy and endobronchial ultrasound tomorrow. Nothing by mouth at midnight. We will recheck INR in the a.m. - Additionally oncology consulted. Recommendations appreciated. They do rec ommend that next step after EBUS could possible be Liver biopsy if liver metastasis suspected. Possibly could be done by interventional radiology - Continue with Solu-Medrol 40 mg every 8 hours, and scheduled DuoNeb's - Continue supplemental oxygen as needed; titrate to keep oxygen greater than 8 8% - F/u nasal mrsa swab (2) Leukocytosis Current Visit: Yes Status: Acute Assessment and Plan: Patient had elevated white count = 19.2 on admission - Neutrophil predominant - White counts continually elevated today = 20.1 - Associated with fevers/chills, diaphoresis, decreased appetite, fatigue, l ethargy - Chest x-ray and CT chest do show lung mass PLAN: Patient has lung mass evident on chest x-ray and CT chest. Less likely infectious etiology (pneumonia). However patient does have recent steroid use as well. - Continue to trend white count - Continue with Zosyn - Follow up with urine and blood cultures (3) Hyponatremia Current Visit: Yes Status: Acute Assessment and Plan: Noted to have hyponatremia on admission. Sodium = 132. 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 SIADH supported with high urine osmolality, high urine sodium, low serum osmolality - Continue to monitor BMP (4) Anemia Current Visit: Yes Status: Acute Assessment and Plan: Patient is anemic on presentation. - Hb = 9.7 - Family does report a 2 point change in patient's hemoglobin from baseline - Otherwise no signs of acute bleeding by history or on exam - Normal MCV PLAN: Anemia may be due to chronic disease. - Continue to monitor for signs of bleeding - Continue to monitor with CBC - Follow up iron studies (5) Chronic respiratory failure with hypoxia Current Visit: Yes Status: Chronic Assessment and Plan: Hx of COPD, supposed to be on home oxygen, but has not been using O2 PLAN: - Cont supplemental oxygen as needed; titrate to keep O2 > 88% - Otherwise, plan as above (6) COPD (chronic obstructive pulmonary disease) Current Visit: Yes Status: Chronic Assessment and Plan: History of COPD. Per family, patient should be on oxygen at baseline, but does not wear oxygen at home. - Patient has been increasingly using his nebulizer and rescue inhaler PLAN: Patient does not appear to be in acute COPD exacerbation - We will treat with Solu-Medrol 40 mg every 8 hours - Scheduled DuoNeb - Continue with antibiotic - Continue supplemental oxygen as needed. Titrate to keep oxygen greater than 88%. (7) Tobacco use Current Visit: Yes Status: Chronic Assessment and Plan: Patient reports [id number] smoking history PLAN: - Encourage smoking cessation (8) DVT prophylaxis Current Visit: Yes Status: Acute Assessment and Plan: PLAN: - Heparin SQ BID DVT Prophylaxis: Heparin SQ BID - Time Spent with Patient Total time spent is greater than 50% in coordination of care (as documented) at patient's floor/unit and/or counseling patient: 25 - 35 minutes Plan of Care Discussed with: family Internal Medicine: Result - Labs CBC & Chem 7: 10/04/18 03:58 10/04/18 03:58 Labs: Short CBC 10/03/18 10/04/18 Range/Units 12:07 03:58 WBC 19.2 H 20.1 H (4.3-11.1) K/mcL Hgb 9.7 L 9.6 L (12.9-16.9) g/dL Hct 31.3 L 30.7 L (37.5-50.1) % Plt Count 421 H 425 H (140-400) K/mcL Neutrophils # 12.9 H 16.8 H (1.6-8.9) K/mcL BMP 10/03/18 10/04/18 12:07 03:58 Sodium 132 L 129 L Potassium 4.0 4.5 Chloride 90 L 93 L Carbon Dioxide 32 H 28 BUN 14 14 Creatinine 0.86 0.71 Glucose 117 H 148 H Calcium 9.8 9.8 Cardiac Enzymes 10/03/18 10/03/18 Range/Units 12:07 17:48 Troponin I 0.03 < 0.03 (< 0.04) ng/mL Liver Function 10/04/18 Range/Units 03:58 Total Bilirubin 0.5 (0.3-1.0) mg/dL AST 15 (13-39) Units/L ALT 23 (7-52) Units/L Alkaline Phosphatase 92 (34-104) Units/L Albumin 3.1 L (3.5-5.7) g/dL Urine 10/03/18 Range/Units 17:53 Urine Color Yellow (Yellow) Urine Clarity Clear (Clear) Urine pH 7.5 (5.0-8.0) pH Units Ur Specific Patterson > 1.030 H (1.010-1.025) Urine Protein 30 H (Neg-Trace) mg/dL Urine Glucose (UA) Normal (Normal) mg/dL - ABG Interpretation ABG results: PT/INR, D-dimer PT 14.5 Seconds (9.4-12.1) H 10/04/18 03:58 - Impressions Impressions Chest X-Ray 10/03/18 12:12 IMPRESSION: Large 8.2 x 5.9 cm left perihilar mass. Recommend CT chest with intravenous contrast for further evaluation. D/ / 10/03/2018 12:37:58 Aureliano Vicente MD / eri Interpreting Provider: Aureliano Vicente MD Head CT 10/03/18 12:14 IMPRESSION: No acute intracranial abnormality. Diffuse atrophic changes with findings suggesting chronic microvascular ischemia D/ / Christ Mcdaniel MD / Christ Mcdaniel MD Interpreting Provider: Christ Mcdaniel MD Chest CT 10/03/18 13:41 IMPRESSION: 1. Large mass in the left upper lobe abutting both the mediastinum and the anterior pleural surface. Pattern is suspected to represent bronchogenic carcinoma. Pulmonary follow-up is recommended with tissue sampling. 2. Multiple tiny solid nodules are otherwise observed within both the left upper and lower lobes, of concern for metastatic disease. 3. Mediastinal lymph node enlargement also suspected to be metastatic. 4. Numerous ill-defined lesions are scattered throughout the visualized liver also suspected to represent metastatic disease. D/ / Jayro Harrison MD / Jayro Harrison MD Interpreting Provider: Jayro Harrison MD Head CTA 10/03/18 13:42 IMPRESSION: 1. No hemodynamically significant stenosis or branch occlusion in the cervical arterial circulation. 2. Calcified atherosclerotic plaque in the cavernous segments of the internal carotid arteries bilaterally resulting in moderate cavernous ICA stenosis. 3. No additional hemodynamically significant stenosis or branch occlusion in the intracranial arterial circulation. 4. Partial visualization of left upper lobe mass. Please refer to separate chest CT report regarding pulmonary findings. D/ / 10/03/2018 15:52:03 William Klein MD / kaylyn Interpreting Provider: William Klein MD Neck CTA 10/03/18 13:42 IMPRESSION: 1. No hemodynamically significant stenosis or branch occlusion in the cervical arterial circulation. 2. Calcified atherosclerotic plaque in the cavernous segments of the internal carotid arteries bilaterally resulting in moderate cavernous ICA stenosis. 3. No additional hemodynamically significant stenosis or branch occlusion in the intracranial arterial circulation. 4. Partial visualization of left upper lobe mass. Please refer to separate chest CT report regarding pulmonary findings. D/ / 10/03/2018 15:52:03 William Klein MD / kaylyn Interpreting Provider: William Klein MD <Ayad Dial - Last Filed: 10/04/18 13:28> (1) Pneumonia Qualifiers: Pneumonia type: due to other aerobic Gram-negative bacteria Laterality: left Lung location: upper lobe of lung Qualified Code(s): J15.6 - Pneumonia due to other Gram-negative bacteria (3) COPD (chronic obstructive pulmonary disease) Qualifiers: COPD type: emphysema Emphysema type: panlobular Qualified Code(s): J43.1 - P anlobular emphysema (5) Anemia Qualifiers: Anemia type: other cause Other causes of anemia: chronic disease, neoplastic Qualified 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 (8) HTN (hypertension) Qualifiers: Hypertension type: essential hypertension Qualified Code(s): I10 - Essential (primary) hypertension <Rachel Vernon - Last Filed: 10/04/18 18:00> (2) Leukocytosis Qualifiers: Leukocytosis type: unspecified Qualified Code(s): D72.829 - Elevated white blood cell count, unspecified (4) Anemia Qualifiers: Anemia type: other cause Other causes of anemia: chronic disease, neoplastic Qualified 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 (6) COPD (chronic obstructive pulmonary disease) Qualifiers: COPD type: emphysema Emphysema type: panlobular Qualified Code(s): J43.1 - Panlobular emphysema
[2018-10-04] MEDS: Piperacillin/Tazobactam 3.375 GM in 0.9 % Sodium Chloride Mini Bag 100 ML IVPB SCH ×2 (09:02→15:59)
[2018-10-04] MEDS: *HR* HYDROcodone/Acet 5/325 mg TABLET PO PRN (11:53)
[2018-10-04] MEDS: MethylPREDNISolone 40 MG/ML VIAL IVP SCH (15:59)
[2018-10-04] MEDS ORDERED: *HR* Phytonadione 5 MG TABLET PO ONE (16:37)
[2018-10-04] MEDS ORDERED: Piperacillin/Tazobactam 3.375 GM in 0.9 % Sodium Chloride Mini Bag 100 ML IVPB SCH (18:09)
[2018-10-04] MEDS ORDERED: Perflutren Lipid Microsphere 1.3 ML in 0.9 % Sodium Chloride 8.7 ML IVP ONE (18:55)
[2018-10-05] MEDS: Piperacillin/Tazobactam 3.375 GM in 0.9 % Sodium Chloride Mini Bag 100 ML IVPB SCH ×3 (00:34→16:45)
[2018-10-05] MEDS: MethylPREDNISolone 40 MG/ML VIAL IVP SCH ×3 (00:34→16:46)
[2018-10-05] MEDS: Ipratropium/Albuterol Neb 3 ML IH SCH ×4 (03:46→23:14)
[2018-10-05] MEDS: *HR* Heparin 5,000 UNIT/ML VIAL SQ SCH ×2 (05:54→18:26)
[2018-10-05 06:15] LABS: Basophils # 0.1 K/mcL (0.0-0.2); Basophils % 0.2 %; Eosinophils # 0.1 K/mcL (0.0-0.6); Eosinophils % 0.2 %; Hematocrit 31.3 % (37.5-50.1); Hemoglobin 9.7 g/dL (12.9-16.9); Immature Granulocytes % 1.6 % (0-4); Lymphocytes # 0.9 K/mcL (0.6-4.6); Lymphocytes % 3.6 %; Mean Corpuscular Hemoglobin 28.9 pg (28.0-33.3); Mean Corpuscular Volume 93.2 fL (83.0-100.0); Mean Platelet Volume 9.4 fL (9.4-12.4); Monocytes # 2.1 K/mcL (0.0-1.3); Monocytes % 8.7 %; Neutrophils # 20.9 K/mcL (1.6-8.9); Platelet Count 477 K/mcL (140-400); Red Blood Count 3.36 M/mcL (4.19-5.50); Red Cell Distribution Width 15.6 % (11.5-14.5); Segmented Neutrophils % 85.7 %; White Blood Count 24.3 K/mcL (4.3-11.1)
[2018-10-05 06:24] LABS: INR 1.2; Prothrombin Time 13.9 Seconds (9.4-12.1)
[2018-10-05 06:35] LABS: % Iron Saturation 15 % (20-55); BUN/Creatinine Ratio 22 (6-26); Blood Urea Nitrogen 18 mg/dL (8-23); Carbon Dioxide 31 mEq/L (23-29); Chloride 92 mEq/L (98-107); Glucose 147 mg/dL (70-105); Iron 30 mcg/dL (65-175); Osmolality,Calculated 279 (280-300); Potassium 4.5 mEq/L (3.5-5.1); Sodium 132 mEq/L (136-145); Transferrin 140 mg/dL (203-362); eGFR For African Americans > 60 (> 60); eGFR For Non-African Americans > 60 (> 60)
[2018-10-05 06:51] LABS: Ferritin 548 ng/mL (20-250)
[2018-10-05] MEDS ORDERED: *HR* Propofol 200 MG/20 ML VIAL IVP ONE (07:17)
[2018-10-05] MEDS ORDERED: Lidocaine -MPF 4% 5 ML AMPUL ONE (07:18)
[2018-10-05] MEDS ORDERED: Lidocaine -MPF 2% 2 ML VIAL ONE (07:19)
[2018-10-05] MEDS ORDERED: *HR* Phenylephrine 10 MG/ML VIAL ONE (07:31)
--- NOTE | 2018-10-05 08:18 | Anesthesia Evaluation PreOp ---
Date of Encounter: 10/05/18 Time of Encounter: 08:16 - Past History Planned Operation: EBUS Cardiac History: HTN, Other (aortic stenosis by echo 12/17/2016 Aortic Valve Peak Brandon:2.82 m/sec Mean Brandon:2.07 m/sec Peak Grad:32.00 mmHg Mean Grad:19.00 mmHg Valve Area:1.02 cm2) Pulmonary History: Former smoker (quit 4 months ago, smoked for 67), COPD (home O2 prn), Snore, Other (H/O chronic respiratory failure, left upper lobe lung mass) [employer] History: Denies Any Significant HX Other Medical History: Denies Any Significant HX Anesthesia History: No Prior Anesthetic Complications, Past Anesthesia Alcohol Use: none Drug use: none Medications and Allergies Omeprazole [PriLOSEC] 20 mg PO DAILY 12/24/16 [History] Tizanidine HCl [Zanaflex] 4 mg PO TID PRN 12/24/16 [History] Albuterol Sulfate [Albuterol Inhaler] 1 - 2 puff IH Q4-6H PRN 10/03/18 [History] Fluticasone Propionate Nasal [Flonase] 1 - 2 spray NS DAILY PRN 10/03/18 [History] Guaifenesin/Dm/Pseudoephedrine [Capmist Dm Tablet] 1 tab PO Q6H PRN 10/03/18 [History] Ipratropium/Albuterol Neb [Duoneb] 3 ml IH Q4HR PRN 10/03/18 [History] Allergy/AdvReac Type Severity Reaction Status Date / Time cetirizine [From Zyrtec] Allergy See Verified 12/24/16 07:51 Comments clonazepam [From Klonopin] Allergy Nausea Verified 12/24/16 07:51 lisinopril Allergy See Verified 12/24/16 07:51 Comments quinine Allergy Nausea Verified 12/24/16 07:51 - Meds/Allergy Pre-op Review Medications Reviewed: Yes Allergies Reviewed: Yes Beta Blockers on Current Med List: No Anesthesia Results - Labs 10/05/18 05:27 10/05/18 05:27 - Imaging EKG: report reviewed (10/03/2018 sinus rhythm, probable old anteroseptal infarct) Additional studies: 12/24/2016 LEFT HEART CATH Indications: Abnormal Test - Stress Impressions: There is moderate two vessel coronary artery disease. The left ventricle is normal and has normal contractility EF 55% Recommendations: Optimal medical therapy of patient's disease. Aggressive risk factor modification. 12/17/2016 Echo Impressions: LVEF 65%. Normal LV chamber size, wall thickness and function. Mild left ventricular diastolic dysfunction. Normal right ventricular structure and function. Mild-moderate aortic stenosis. Mean gradient 19 mmHg. Unable to estimate RVSP due to lack of TR jet. Aortic Valve Peak Brandon: 2.82 m/sec Mean Brandon: 2.07 m/sec Peak Grad: 32.00 mmHg Mean Grad: 19.00 mmHg Valve Area: 1.02 cm2 12/15/2016 Stress Impression: Pharmacologic stress ECG is non-diagnostic for ischemia due to baseline ST and T changes. Gated EF = 75%. Medium sized, mild intensity, fixed inferior perfusion defect. Wall motion appears normal. These findings are suggestive of artifact. There is mild visual and quantitative evidence of transient ischemic dilatation. TID ratio 1.4. This is a nonspecific finding that can be associated with significant left main or multivessel CAD. Dr. Santana notified of results via eCW. Anesthesia Exam Vital Signs/O2 Sat/Glucose, Most Recent Temp Pulse Resp BP Pulse Ox 97.9 F 97 20 173/93 98 10/05/18 08:15 10/05/18 08:15 10/05/18 08:15 10/05/18 08:15 10/05/18 08:15 Blood Glucose* 152 Height: 6'/1.83m Weight: 269 lbs/122.4 kg NPO (# of Hours): 8 Pain Scale: 0 Pain Scale Used: Numeric (1 - 10) - HEENT Pupil (Motor): EOMI Mallampati: II Teeth: Edentulous Oral Opening: Greater than 3 - [employer] LOC: Oriented [employer] Motor: Normal RUE, Normal LUE, Normal RLE, Normal LLE, Normal Face [employer] Sensory: Normal: RUE, LUE, RLE, LLE, Face - Cardiac Rhythm: Regular Murmur: Systolic - Pulmonary Breath Sounds: bilateral Clear (wheezes) Respiratory Effort: Symmetrical Anesthesia Assess/Plan ASA Score: 3 Level of consciousness: Cooperative, Oriented, Tranquil Anesthetic Plan: General Monitoring Plan: Standard Monitors Recovery Plan: PACU
[2018-10-05] MEDS ORDERED: Ringers Solution, Lactated 1,000 ML IVC SCH (08:30)
[2018-10-05] MEDS ORDERED: Piperacillin/Tazobactam 3.375 GM VIAL ONE (09:01)
--- NOTE | 2018-10-05 10:00 | Internal Med Progress Note ---
<Gisela Preera - Last Filed: 10/05/18 17:54> Hospitalist Progress Note - Encounter Date of Encounter: 10/05/18 Time of Encounter: 10:30 - Subjective Interval History: Pt ambulating with walker and PT this morning. Pt says he feels fine today, has no chest pain or shortness of breath. Bronchoscopy for today cancelled due to hi gh BP 170/90 this morning and systolic in 170's overnight. Denies fevers, chills, nausea, abdominal pain. Cough is at baseline. - Exam Vitals: Temp Pulse Resp BP Pulse Ox 97.9 F 97 20 173/93 98 10/05/18 08:15 10/05/18 08:15 10/05/18 08:15 10/05/18 08:15 10/05/18 08:15 Exam: Gen: vital signs noted, alert Head: normocephalic, atraumatic Eyes: PERRL, EOMI Neck: supple Cardio: RRR, systolic murmur over aortic listening post, +s1/s2, no peripheral edema Pulm: Decreased breath sounds bilaterally, no rhonchi, no wheezes, no rales, no respiratory distress, saturating well on 2L NC Abd: obese, soft, nontender, active bowel sounds Neuro: AAO x 3, CN II-XII grossly intact, moves all extremities spontaneously, no facial droop, no focal neuro deficit Ext: no LE edema, no cyanosis, no clubbing Psych: cooperative with exam, answers questions appropriately - Assessment and Plan (1) Pneumonia Current Visit: Yes Status: Suspected Assessment and Plan: Suspect post-obstructive pneumonia in the setting of lung mass. Technically mets sepsis criteria with leukocytosis and tachycardia with suspected source of PNA Afebrile since admission. WBC 19.2 on admission and trending upwards, some of which may be d/t IV steroids. Urine, blood, and sputum culture results pending. MRSA screen results pending. Zosyn started empirically on admission, will continue for now. (2) Mass of left lung Current Visit: Yes Status: Acute Assessment and Plan: Lung mass concerning for malignancy with possible mets. CXR shows 8.2 x 5.9 cm left perihilar mass. CT chest shows large mass left upper lobe concerning for bronchogenic carcinoma; multiple tiny solid nodules within BIBIANA and LLL; mediastinal lymph node enlargement; scattered liver lesions. Lung mass likely contributing to presumed post-obstructive PNA. Bronchoscopy cancelled due to hypertension. Anticipate bronchoscopy tomorrow. Oncology consulted, recommendations appreciated. (3) Chronic respiratory failure with hypoxia Current Visit: Yes Status: Chronic Assessment and Plan: History of COPD, non-compliance with supplemental oxygen. SpO2 94% on 2L nasal cannula. Echocardiogram shows LVEF 60-65%, moderate aortic stenosis, and mild LV diastolic dysfunction. Continue supplemental oxygen by nasal cannula. Scheduled duonebs and PRN albuterol nebs. Continue IV solumedrol 40 mg Q8H (4) Hyponatremia Current Visit: Yes Status: Acute Assessment and Plan: Mild hyponatremia on admission Euvolemic on exam Na 132, calculated osmolality 276, urine Na 100, urine osmolality 611 Possible SIADH given CXR and CT imaging of lung mass (5) COPD (chronic obstructive pulmonary disease) Current Visit: Yes Status: Chronic Assessment and Plan: Doubt acute exacerbation, cough and sputum production are at his baseline. Home oxygen prescription to wear 2L at all times, doesn't use his home O2. Albuterol nebulizers PRN and duonebs scheduled (6) Anemia Current Visit: Yes Status: Acute Assessment and Plan: Unknown chronicity, unknown baseline. Hgb 9.7 on admission, Hgb 10.9 earlier this month. No overt signs of acute bleed, pt hemodynamically stable. (7) HTN (hypertension) Current Visit: Yes Status: Chronic Assessment and Plan: Not on home anti-hypertensives. Start amlodipine 5 mg at bedtime. PRN hydralazine for SBP > 160 / DBP > 90. (8) Tobacco use Current Visit: Yes Status: Chronic DVT Prophylaxis: Heparin SQ BID - Time Spent with Patient Total time spent is greater than 50% in coordination of care (as documented) at patient's floor/unit and/or counseling patient: Internal Medicine: Result - Labs CBC & Chem 7: 10/05/18 05:27 10/05/18 05:27 Labs: Short CBC 10/05/18 Range/Units 05:27 WBC 24.3 H (4.3-11.1) K/mcL Hgb 9.7 L (12.9-16.9) g/dL Hct 31.3 L (37.5-50.1) % Plt Count 477 H (140-400) K/mcL Neutrophils # 20.9 H (1.6-8.9) K/mcL BMP 10/05/18 05:27 Sodium 132 L Potassium 4.5 Chloride 92 L Carbon Dioxide 31 H BUN 18 Creatinine 0.82 Glucose 147 H Calcium 10.0 - ABG Interpretation ABG results: PT/INR, D-dimer PT 13.9 Seconds (9.4-12.1) H 10/05/18 05:27 Consult Discharge Plan - Plan Referrals: Dyllan Rodriguez, [Primary Care Provider] - <Christ Gonzales - Last Filed: 10/05/18 18:13> Hospitalist Progress Note - Encounter Date of Encounter: 10/05/18 - Exam Vitals: Temp Pulse Resp BP Pulse Ox 98.2 F 107 20 159/79 95 10/05/18 16:25 10/05/18 16:46 10/05/18 16:25 10/05/18 16:46 10/05/18 16:25 - Assessment and Plan (1) Mass of upper lobe of left lung Current Visit: Yes Status: Acute (2) COPD (chronic obstructive pulmonary disease) Current Visit: Yes Status: Chronic (3) Anemia Current Visit: Yes Status: Acute (4) Tobacco use Current Visit: Yes Status: Chronic (5) Chronic respiratory failure with hypoxia Current Visit: Yes Status: Chronic (6) Hyponatremia Current Visit: Yes Status: Acute (7) HTN (hypertension) Current Visit: Yes Status: Chronic (8) Pneumonia Current Visit: Yes Status: Suspected (9) Small cell lung cancer, left upper lobe Current Visit: Yes Status: Suspected - Time Spent with Patient Total time spent is greater than 50% in coordination of care (as documented) at patient's floor/unit and/or counseling patient: Internal Medicine: Result - Labs CBC & Chem 7: 10/05/18 05:27 10/05/18 05:27 Labs: Short CBC 10/05/18 Range/Units 05:27 WBC 24.3 H (4.3-11.1) K/mcL Hgb 9.7 L (12.9-16.9) g/dL Hct 31.3 L (37.5-50.1) % Plt Count 477 H (140-400) K/mcL Neutrophils # 20.9 H (1.6-8.9) K/mcL BMP 10/05/18 05:27 Sodium 132 L Potassium 4.5 Chloride 92 L Carbon Dioxide 31 H BUN 18 Creatinine 0.82 Glucose 147 H Calcium 10.0 - ABG Interpretation ABG results: PT/INR, D-dimer PT 13.9 Seconds (9.4-12.1) H 10/05/18 05:27 - Impressions Impressions Echocardiogram 10/04/18 16:58 Impressions: Technically sub-optimal due to poor echocardiographic windows. LVEF 60-65%. Normal LV chamber size and function. Mild concentric left ventricular hypertrophy. Mild left ventricular diastolic dysfunction. Normal right ventricular structure and function. Mildly dilated left atrium. Aortic valve not well visualized. Moderate aortic stenosis suggested by Doppler. Mean gradient 35 mmHg. Peak velocity 3.6 m/s. Unable to estimate RVSP due to lack of TR jet. Left Ventricular Wall Motion: Rest Echo Findings All wall segments showed normal motion. Findings: Study Quality * Technically sub-optimal due to poor echocardiographic windows. ECG Findings * Normal sinus rhythm. Left Ventricle * LVEF 60-65%. * Normal LV chamber size and function. * Mild concentric left ventricular hypertrophy. * Mild left ventricular diastolic dysfunction. Right Ventricle * Grossly normal right ventricular structure and function. Left Atrium * Mildly dilated left atrium. Right Atrium * Mildly dilated right atrium. Interatrial Septum * Interatrial septum not well evaluated. Aortic Valve * Aortic valve not well visualized. * Moderate aortic stenosis suggested by Doppler. Mean gradient 35 mmHg. Peak velocity 3.6 m/s. * No aortic regurgitation. Mitral Valve * Normal mitral valve structure and function. * No mitral stenosis. * No mitral regurgitation. Tricuspid Valve * Tricuspid valve not well visualized. * No tricuspid regurgitation. * Unable to estimate RVSP due to lack of TR jet. Pulmonic Valve * Pulmonic valve not well visualized. Aorta * Normally sized aortic root. Pericardium * The pericardium appears normal. IVC * The IVC is not well evaluated. Pulmonary Artery * Pulmonary artery not well visualized. - Attending Attestation I examined this patient and my medical decision-making was reviewed with the Resident Physician. I agree with the documented findings, disposition and treatment plan as described except to the extent set forth below. Patient seen and examined at bedside. Patient states that he feels okay today. He does report mild shortness of breath especially with exertion. Denies any cough or hemoptysis. Lungs are diminished bilaterally, no rales, rhonchi, wheezes appreciated. Lung mass: Presumed to be small cell. Bronchoscopy was attempted today however patient had elevated blood pressure. We will control blood pressure and plan for bronchoscopy tomorrow. Hypertension: Patient noted to be significantly hypertensive throughout his entire stay other than isolated readings. Start amlodipine 10 mg at bedtime and hydralazine IV as needed for significant hypertension. 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 (7) HTN (hypertension) Qualifiers: Hypertension type: essential hypertension Qualified Code(s): I10 - Essential (primary) hypertension <Christ Gonzales - Last Filed: 10/05/18 18:13> (2) COPD (chronic obstructive pulmonary disease) Qualifiers: COPD type: emphysema Emphysema type: panlobular Qualified Code(s): J43.1 - Panlobular emphysema (3) Anemia Qualifiers: Anemia type: other cause Other causes of anemia: chronic disease, neoplastic Qualified 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 (7) HTN (hypertension) Qualifiers: Hypertension type: essential hypertension Qualified Code(s): I10 - Essential (primary) hypertension (8) Pneumonia Qualifiers: Pneumonia type: due to other aerobic Gram-negative bacteria Laterality: left Lung location: upper lobe of lung Qualified Code(s): J15.6 - Pneumonia due to other Gram-negative bacteria
--- NOTE | 2018-10-05 12:51 | Electrocardiograph Report ---
[place] [employer] [facility] Test Date: 2018-10-03 Pat Name: Cholo Resendiz Department: [id number] Room: 3A13 Gender: M Licensed Pharmacist: : 1940 Requested By: Brenda Chan Order Number: [id number] Reading MD: Christopher Arellano Measurements Intervals [place] Rate: 98 P: 73 MS: 164 QRS: 78 QRSD: 94 T: 66 QT: 358 QTc: 458 Interpretive Statements Sinus rhythm Old anteroseptal infarct Electronically Signed On 10-05-2018 12:50:18 EDT by Christopher Arellano
[2018-10-05] MEDS: *HR* HYDROcodone/Acet 5/325 mg TABLET PO PRN (13:55)
--- NOTE | 2018-10-05 15:04 | Oncology Inp Consult Note ---
<Gualberto Saucedo Jr - Last Filed: 10/05/18 15:43> Date of Encounter: 10/05/18 Time of Encounter: 15:03 Assessment and Plan (1) Mass of upper lobe of left lung Status: Acute Assessment and plan: This is a very pleasant 77-year-old male with no previous cancer history admitted to the hospital for cough or shortness of breath. He does wear home oxygen 2 L, but does not always use regularly. During initial workup an emergent Department hospitalist patient was found to have a left upper lobe lung mass and liver lesions, suspected to be small cell lung cancer. Patient to have bronchoscopy at 8:15 today, but patient had high blood pressure 170/90, test was canceled and treated for the hypertensive episode. Field Service Manager to attempt second bronchoscopy tomorrow morning. I discussed with patient regarding non-small cell small cell lung cancers and discussed liver lesions. Patient states he wants all treatments available to him and to remain full code. He does see family physician a regular basis for checkups and medication refills. Recommendation is to obtain biopsy of left upper lobe mass, and make appointment to see Dr. Joseph Naik as an outpatient 10 days after discharge for test results and further treatment planning. We will perform outpatient PET scan Dr. Naik assessed patient with me today. Thank you for allowing us to participate in your patient's care - Data of Consult Patient: new to practice Consult date: 10/05/18 Requesting Physician: Christ Gonzales, Primary Care Provider: Dyllan Rodriguez, DO - Consult Narrative Reason for consult: new lung mass/liver mets History of present illness: Mr. Resendiz is a 77 year old male with history of COPD, CAD ([facility] 12/2016 no stents), HTN, GERD, and enlarged prostate disease Patient is supposed to wear 2L oxygen continuously, reports he doesn't wear it and relies on his albuterol nebulizer. Normally pt uses his nebulizer once a day, but used it 3-4x last night. No increase in cough or sputum production from patient's baseline. He has complained of decreased appetite night sweats over the last several months. Stoke alert was called d/t his complaints of right eye blurriness. CT head negative for acute intracranial abnormalities, CTA head/neck negative for hemodynamically significant occlusions or stenosis. CXR significant for 8.2 x 5.9 cm left perihilar mass. CT chest showed large mass of left upper lobe, many small solid nodules throughout left lung, enlarged mediastinal lymph nodes, and multiple poorly-defined liver lesions. Patient has no previous personal history of cancer. He does have an large prostate and gets annual PSA testing, but none of recent time. Oncology service consult it for evaluation of his new left upper lobe mass with liver metastatic disease. Past Med Surg Social Fam HX - Past Medical History Medical history: arthritis, COPD, GERD, hypertension Psychiatric history: no psych history - Past Surgical History Surgical History: no surgical history - Social History Smoking Status: Former smoker Smokeless Tobacco Status: No Alcohol use: none Drug use: none Medications and Allergies Omeprazole [PriLOSEC] 20 mg PO DAILY 12/24/16 [History] Tizanidine HCl [Zanaflex] 4 mg PO TID PRN 12/24/16 [History] Albuterol Sulfate [Albuterol Inhaler] 1 - 2 puff IH Q4-6H PRN 10/03/18 [History] Fluticasone Propionate Nasal [Flonase] 1 - 2 spray NS DAILY PRN 10/03/18 [History] Guaifenesin/Dm/Pseudoephedrine [Capmist Dm Tablet] 1 tab PO Q6H PRN 10/03/18 [History] Ipratropium/Albuterol Neb [Duoneb] 3 ml IH Q4HR PRN 10/03/18 [History] Allergy/AdvReac Type Severity Reaction Status Date / Time cetirizine [From Zyrtec] Allergy See Verified 12/24/16 07:51 Comments clonazepam [From Klonopin] Allergy Nausea Verified 12/24/16 07:51 lisinopril Allergy See Verified 12/24/16 07:51 Comments quinine Allergy Nausea Verified 12/24/16 07:51 Respiratory: Present: cough, dyspnea, dyspnea on exertion Oncology - Exam - Constitutional General appearance: cooperative, no acute distress - Head Head exam: Present: normal inspection, normocephalic - Eye Eye exam: Present: PERRL - ENT ENT exam: Present: mucous membranes moist - Neck Neck exam: Present: full ROM - Respiratory Respiratory exam: Present: decreased breath sounds - Cardiovascular Cardiovascular exam: Present: RRR - GI/Abdominal GI/Abdominal exam: Present: normal bowel sounds, soft - Extremities Exam Extremities exam: Present: full ROM, normal inspection - Neurological Exam Neurological exam: Present: alert, oriented X3, no focal deficits - Psychiatric Psychiatric exam: Present: normal affect, normal mood - Skin Skin exam: Present: dry, intact, warm Oncology Inpatient Results Labs: Laboratory Last Values WBC 24.3 K/mcL (4.3-11.1) H 10/05/18 05:27 RBC 3.36 M/mcL (4.19-5.50) L 10/05/18 05:27 Hgb 9.7 g/dL (12.9-16.9) L 10/05/18 05:27 Hct 31.3 % (37.5-50.1) L 10/05/18 05:27 MCV 93.2 fL (83.0-100.0) 10/05/18 05:27 MCH 28.9 pg (28.0-33.3) 10/05/18 05:27 MCHC 31.0 g/dL (31.6-35.5) L 10/05/18 05:27 RDW 15.6 % (11.5-14.5) H 10/05/18 05:27 Plt Count 477 K/mcL (140-400) H 10/05/18 05:27 MPV 9.4 fL (9.4-12.4) 10/05/18 05:27 Immature Gran % 1.6 % (0-4) 10/05/18 05:27 Seg Neutrophils % 85.7 % 10/05/18 05:27 3.6 % 10/05/18 05:27 8.7 % 10/05/18 05:27 0.2 % 10/05/18 05:27 0.2 % 10/05/18 05:27 20.9 K/mcL (1.6-8.9) H 10/05/18 05:27 0.9 K/mcL (0.6-4.6) 10/05/18 05:27 2.1 K/mcL (0.0-1.3) H 10/05/18 05:27 0.1 K/mcL (0.0-0.6) 10/05/18 05:27 0.1 K/mcL (0.0-0.2) 10/05/18 05:27 PT 13.9 Seconds (9.4-12.1) H 10/05/18 05:27 INR 1.2 10/05/18 05:27 APTT 31.2 Seconds (26.0-36.0) 10/04/18 03:58 Sodium 132 mEq/L (136-145) L 10/05/18 05:27 Potassium 4.5 mEq/L (3.5-5.1) 10/05/18 05:27 Chloride 92 mEq/L (98-107) L 10/05/18 05:27 Carbon Dioxide 31 mEq/L (23-29) H 10/05/18 05:27 BUN 18 mg/dL (8-23) 10/05/18 05:27 0.82 mg/dL (0.70-1.30) 10/05/18 05:27 Est GFR ( Amer) > 60 (> 60) 10/05/18 05:27 Est GFR (Non-Af Amer) > 60 (> 60) 10/05/18 05:27 22 (6-26) 10/05/18 05:27 Glucose 147 mg/dL (70-105) H 10/05/18 05:27 POC Glucose 164 mg/dL (70-99) H 10/05/18 00:11 279 (280-300) L 10/05/18 05:27 Lactic Acid 1.4 mmol/L (0.5-2.2) 10/03/18 16:16 Calcium 10.0 mg/dL (8.6-10.3) 10/05/18 05:27 Iron 30 mcg/dL (65-175) L 10/05/18 05:27 % Saturation 15 % (20-55) L 10/05/18 05:27 140 mg/dL (203-362) L 10/05/18 05:27 548 ng/mL (20-250) H 10/05/18 05:27 0.5 mg/dL (0.3-1.0) 10/04/18 03:58 AST 15 Units/L (13-39) 10/04/18 03:58 ALT 23 Units/L (7-52) 10/04/18 03:58 92 Units/L (34-104) 10/04/18 03:58 < 0.03 ng/mL (< 0.04) 10/03/18 17:48 B-Natriuretic Peptide 161 pg/mL (Less than 100) H 10/03/18 12:07 7.2 g/dL (6.4-8.9) 10/04/18 03:58 3.1 g/dL (3.5-5.7) L 10/04/18 03:58 4.1 g/dL (2.4-3.5) H 10/04/18 03:58 0.8 (1.1-2.2) L 10/04/18 03:58 Yellow (Yellow) 10/03/18 17:53 Clear (Clear) 10/03/18 17:53 7.5 pH Units (5.0-8.0) 10/03/18 17:53 Ur Specific [place] > 1.030 (1.010-1.025) H 10/03/18 17:53 30 mg/dL (Neg-Trace) H 10/03/18 17:53 Normal mg/dL (Normal) 10/03/18 17:53 Negative mg/dL (Negative) 10/03/18 17:53 Negative (Negative) 10/03/18 17:53 Negative (Negative) 10/03/18 17:53 Negative (Negative) 10/03/18 17:53 Normal mg/dL (Normal) 10/03/18 17:53 Ur Leukocyte Esterase Negative (Negative) 10/03/18 17:53 3-5 per hpf (0-3) H 10/03/18 17:53 5-15 per hpf (0-3) H 10/03/18 17:53 Ur Squamous Epith Cells Many per lpf (None-Few) H 10/03/18 17:53 None Seen per hpf (None-Few) 10/03/18 17:53 Hyaline Casts None Seen per lpf (None-Few) 10/03/18 17:53 Ur Culture Indicated? YES (NO) A 10/03/18 17:53 611 mOsm/kg (300-1090) 10/03/18 17:53 100.3 mEq/L 10/03/18 17:53 Consult Discharge Plan - Plan Referrals: Dyllan Rodriguez, [Primary Care Provider] - <Joseph Naik - Last Filed: 10/05/18 21:24> Date of Encounter: 10/05/18 - Data of Consult Requesting Physician: Christ Gonzales, Primary Care Provider: Dyllan Rodriguez DO - Attending Attestation I have seen and examined Mr. Resendiz and agree with Mr. Saucedo's assessment. He presented with progression TYSON and intermittent cough. He also noted diminished visual acuity involving the right eye and has right leg weakness. CT imaging of the head was negative for acute cva or lesion. CT chest which I personally reviewed reveals a large mass in the left upper lobe abutting both the mediastinum and the anterior pleural surface. Multiple tiny solid nodules are otherwise observed within both the left upper and lower lobes. Mediastinal lymph node enlargement also suspected to be metastatic. Numerous ill-defined lesions are scattered throughout the visualized liver. This is concerning for primary lung cancer with metastatic spread. Biopsy was planned via bronchoscopy but postponed until tomorrow. If this problematic, would pursue CT guided liver biopsy. On exam, diminished breath sounds bilaterally. Heart RRR. Abdomen is soft. We reviewed CT results and presumptive diagnosis of lung carcinoma NOS. MRI brain has been ordered to exclude metastasis given symptoms. Outpatient PET/CT will be arranged after biopsy completed. He desires to return home tomorrow which I think is reasonable if deemed physically able/safe. Recommend PT/OT evaluation prior to d/c. Inpatient Charges Provider: Dr. Maryann Naik Consult - Inpatient Medicare Only: [id number]
--- NOTE | 2018-10-05 15:18 | Pulmonology Progress Note ---
Date of Encounter: 10/05/18 Time of Encounter: 08:00 Assessment and Plan (1) Mass of upper lobe of left lung Current Visit: Yes Status: Acute Patient endobronchial ultrasound was canceled due to high blood pressure discussed with the primary team attending regarding blood pressure management. And also to adequate pain control has this can also increase her blood pressure. 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 Patient is scheduled for endobronchial ultrasound tomorrow to keep him nothing by mouth after midnight the plan was communicated with the primary team. (2) Acute and chronic respiratory failure Current Visit: Yes Status: Acute Continue O2 supplementation, to continue management of COPD. Qualifiers: Respiratory failure complication: hypoxia Qualified Code(s): J96.21 - Acute and chronic respiratory failure with hypoxia (3) Acute exacerbation of chronic obstructive airways disease Current Visit: Yes Status: Acute Continue bronchodilators and steroids. Subjective Principal diagnosis: Left lung mass COPD exacerbation Interval history: Patient says is doing well patient and endobronchial ultrasound and general anesthesia was canceled due to high blood pressure. Patient denies much shortness of breath , denies much cough or sputum production, denies any fever or chills . Objective PUL Vital signs: Last Vital Signs Temp 97.8 F 10/05/18 11:05 Pulse 99 10/05/18 11:05 Resp 18 10/05/18 11:05 BP 166/85 10/05/18 11:05 Pulse Ox 96 10/05/18 11:05 General appearance: no acute distress Effort: normal Auscultation: bilateral: clear, diminished breath sounds (In the bases) Cardiovascular: regular rate and rhythm Gastrointestinal: normoactive bowel sounds Extremities: no cyanosis, no edema normal mental status, non-focal exam mood appropriate Results - Laboratory Findings CBC and BMP: 10/05/18 05:27 10/05/18 05:27 PT/INR, D-dimer PT 13.9 Seconds (9.4-12.1) H 10/05/18 05:27 Abnormal lab findings: Abnormal lab results WBC 24.3 K/mcL (4.3-11.1) H 10/05/18 05:27 RBC 3.36 M/mcL (4.19-5.50) L 10/05/18 05:27 Hgb 9.7 g/dL (12.9-16.9) L 10/05/18 05:27 Hct 31.3 % (37.5-50.1) L 10/05/18 05:27 MCHC 31.0 g/dL (31.6-35.5) L 10/05/18 05:27 RDW 15.6 % (11.5-14.5) H 10/05/18 05:27 Plt Count 477 K/mcL (140-400) H 10/05/18 05:27 MPV 9.2 fL (9.4-12.4) L 10/04/18 03:58 20.9 K/mcL (1.6-8.9) H 10/05/18 05:27 2.1 K/mcL (0.0-1.3) H 10/05/18 05:27 1.6 K/mcL (0.0-0.6) H 10/03/18 12:07 PT 13.9 Seconds (9.4-12.1) H 10/05/18 05:27 Sodium 132 mEq/L (136-145) L 10/05/18 05:27 Chloride 92 mEq/L (98-107) L 10/05/18 05:27 Carbon Dioxide 31 mEq/L (23-29) H 10/05/18 05:27 Glucose 147 mg/dL (70-105) H 10/05/18 05:27 POC Glucose 164 mg/dL (70-99) H 10/05/18 00:11 279 (280-300) L 10/05/18 05:27 Lactic Acid 2.6 mmol/L (0.5-2.2) H 10/03/18 14:05 Iron 30 mcg/dL (65-175) L 10/05/18 05:27 % Saturation 15 % (20-55) L 10/05/18 05:27 140 mg/dL (203-362) L 10/05/18 05:27 548 ng/mL (20-250) H 10/05/18 05:27 B-Natriuretic Peptide 161 pg/mL (Less than 100) H 10/03/18 12:07 3.1 g/dL (3.5-5.7) L 10/04/18 03:58 4.1 g/dL (2.4-3.5) H 10/04/18 03:58 0.8 (1.1-2.2) L 10/04/18 03:58 Ur Specific [place] > 1.030 (1.010-1.025) H 10/03/18 17:53 30 mg/dL (Neg-Trace) H 10/03/18 17:53 3-5 per hpf (0-3) H 10/03/18 17:53 5-15 per hpf (0-3) H 10/03/18 17:53 Ur Squamous Epith Cells Many per lpf (None-Few) H 10/03/18 17:53 Ur Culture Indicated? YES (NO) A 10/03/18 17:53 - Microbiology Findings Microbiology Findings: Microbiology, Last 48 Hours 10/04/18 19:48 Sputum Culture - Preliminary Sputum 10/04/18 11:50 Nasal Screen MRSA/MSSA - Preliminary Nose Culture is incubating. 10/03/18 17:53 Urine Culture - Preliminary Urine,Clean Catch Culture is incubating. 10/03/18 17:48 Blood Culture - Preliminary Peripheral Venipuncture Culture is incubating and being continuously monitored for growth. Final report to follow. 10/03/18 17:48 Blood Culture - Preliminary Peripheral Venipuncture Culture is incubating and being continuously monitored for growth. Final report to follow. - Clinical Findings Intake & Output: Intake & Output 10/04/18 10/05/18 10/05/18 23:59 07:59 15:59 Intake Total 100 / 200 100 / 200 100 / 200 Output Total 0 / 0 0 / 0 Balance 100 / 200 100 / 200 100 / 200 Weight 122.4 kg Consult Discharge Plan - Plan Referrals: Dyllan Rodriguez DO [Primary Care Provider] -
[2018-10-05] MEDS ORDERED: Gadolinium Contrast Agent (WT Based) IV PRN (16:27)
[2018-10-05] MEDS: *HR* OxyCODONE Immed Rel 5 MG TABLET PO PRN (16:58)
--- NOTE | 2018-10-05 17:50 | Anesthesia Evaluation PreOp ---
Date of Encounter: 10/05/18 Time of Encounter: 17:48 - Past History Planned Operation: EBUS Cardiac History: Other (aortic stenosis by echo 12/17/2016 Aortic Valve Peak Brandon:2.82 m/sec Mean Brandon:2.07 m/sec Peak Grad:32.00 mmHg Mean Grad:19.00 mmHg Valve Area:1.02 cm2)) Pulmonary History: Former smoker (quit 4 months ago, smoked for 67), COPD (home O2 prn), Other (H/O chronic respiratory failure, left upper lobe lung mass) PHONE REPRESENTATIVE History: Denies Any Significant HX Other Medical History: Denies Any Significant HX Alcohol Use: none Drug use: none Medications and Allergies Omeprazole [PriLOSEC] 20 mg PO DAILY 12/24/16 [History] Tizanidine HCl [Zanaflex] 4 mg PO TID PRN 12/24/16 [History] Albuterol Sulfate [Albuterol Inhaler] 1 - 2 puff IH Q4-6H PRN 10/03/18 [History] Fluticasone Propionate Nasal [Flonase] 1 - 2 spray NS DAILY PRN 10/03/18 [History] Guaifenesin/Dm/Pseudoephedrine [Capmist Dm Tablet] 1 tab PO Q6H PRN 10/03/18 [History] Ipratropium/Albuterol Neb [Duoneb] 3 ml IH Q4HR PRN 10/03/18 [History] Allergy/AdvReac Type Severity Reaction Status Date / Time cetirizine [From Zyrtec] Allergy See Verified 12/24/16 07:51 Comments clonazepam [From Klonopin] Allergy Nausea Verified 12/24/16 07:51 lisinopril Allergy See Verified 12/24/16 07:51 Comments quinine Allergy Nausea Verified 12/24/16 07:51 - Meds/Allergy Pre-op Review Medications Reviewed: Yes Allergies Reviewed: Yes Beta Blockers on Current Med List: No Anesthesia Results - Labs 10/05/18 05:27 10/05/18 05:27 - Imaging EKG: report reviewed (Sinus rhythm Old anteroseptal infarct) Additional studies: Echocardiogram Name: Cholo Resendiz Date of Study: 10/04/2018 EV/EV echocardiogram Impressions: Technically sub-optimal due to poor echocardiographic windows. LVEF 60-65%. Normal LV chamber size and function. Mild concentric left ventricular hypertrophy. Mild left ventricular diastolic dysfunction. Normal right ventricular structure and function. Mildly dilated left atrium. Aortic valve not well visualized. Moderate aortic stenosis suggested by Doppler. Mean gradient 35 mmHg. Peak velocity 3.6 m/s. Unable to estimate RVSP due to lack of TR jet. aortic stenosis by echo 12/17/2016 Aortic Valve Peak Brandon:2.82 m/sec Mean Brandon:2.07 m/sec Peak Grad:32.00 mmHg Mean Grad:19.00 mmHg Valve Area:1.02 cm2) 12/15/2016 Stress Impression: Pharmacologic stress ECG is non-diagnostic for ischemia due to baseline ST and T changes. Gated EF = 75%. Medium sized, mild intensity, fixed inferior perfusion defect. Wall motion appears normal. These findings are suggestive of artifact. There is mild visual and quantitative evidence of transient ischemic dilatation. TID ratio 1.4. This is a nonspecific finding that can be associated with significant left main or multivessel CAD. Dr. Santana notified of results via eCW. Anesthesia Exam Vital Signs/O2 Sat, Most Current Temp Pulse Resp BP Pulse Ox 98.2 F 107 20 159/79 95 10/05/18 16:25 10/05/18 16:46 10/05/18 16:25 10/05/18 16:46 10/05/18 16:25 - HEENT Pupil (Motor): Pupils equal, EOMI Mallampati: II Teeth: Edentulous Oral Opening: Greater than 3 - PHONE REPRESENTATIVE LOC: Oriented PHONE REPRESENTATIVE Motor: Normal RUE, Normal LUE, Normal RLE, Normal LLE, Normal Face PHONE REPRESENTATIVE Sensory: Normal: RUE, LUE, RLE, LLE, Face - Cardiac Rhythm: Regular Murmur: None JVD: No Carotid Bruit: No - Pulmonary Breath Sounds: bilateral Clear Respiratory Effort: Symmetrical Anesthesia Assess/Plan ASA Score: 3 Level of consciousness: Cooperative Anesthetic Plan: General Autologous Blood: Yes Monitoring Plan: Standard Monitors Recovery Plan: PACU
[2018-10-05] MEDS: amLODIPine 5 MG TABLET PO SCH (20:28)
[2018-10-06] MEDS: Piperacillin/Tazobactam 3.375 GM in 0.9 % Sodium Chloride Mini Bag 100 ML IVPB SCH ×4 (00:31→23:27)
[2018-10-06] MEDS: MethylPREDNISolone 40 MG/ML VIAL IVP SCH ×4 (00:31→23:27)
[2018-10-06 03:14] LABS: Monocytes % 13.5 %
[2018-10-06 03:16] LABS: Basophils # 0.1 K/mcL (0.0-0.2); Basophils % 0.3 %; Hematocrit 31.2 % (37.5-50.1); Hemoglobin 9.5 g/dL (12.9-16.9); Immature Granulocytes % 1.4 % (0-4); Lymphocytes # 1.1 K/mcL (0.6-4.6); Lymphocytes % 4.1 %; Mean Corpuscular HGB Conc 30.4 g/dL (31.6-35.5); Mean Corpuscular Hemoglobin 28.1 pg (28.0-33.3); Mean Corpuscular Volume 92.3 fL (83.0-100.0); Mean Platelet Volume 9.3 fL (9.4-12.4); Monocytes # 3.6 K/mcL (0.0-1.3); Neutrophils # 21.5 K/mcL (1.6-8.9); Platelet Count 498 K/mcL (140-400); Red Blood Count 3.38 M/mcL (4.19-5.50); Red Cell Distribution Width 15.9 % (11.5-14.5); Segmented Neutrophils % 80.7 %; White Blood Count 26.6 K/mcL (4.3-11.1)
[2018-10-06 03:31] LABS: BUN/Creatinine Ratio 25 (6-26); Blood Urea Nitrogen 18 mg/dL (8-23); Calcium 9.7 mg/dL (8.6-10.3); Carbon Dioxide 31 mEq/L (23-29); Chloride 93 mEq/L (98-107); Glucose 136 mg/dL (70-105); Osmolality,Calculated 274 (280-300); Potassium 4.5 mEq/L (3.5-5.1); Sodium 130 mEq/L (136-145); eGFR For African Americans > 60 (> 60); eGFR For Non-African Americans > 60 (> 60)
[2018-10-06] MEDS: Ipratropium/Albuterol Neb 3 ML IH SCH ×5 (03:39→22:47)
[2018-10-06] MEDS: *HR* Heparin 5,000 UNIT/ML VIAL SQ SCH ×2 (05:22→16:53)
[2018-10-06 05:46] LABS: Platelet Estimate Increased (Normal)
--- NOTE | 2018-10-06 08:39 | Internal Med Progress Note ---
<Christ Gonzales - Last Filed: 10/06/18 14:31> Hospitalist Progress Note - Encounter Date of Encounter: 10/06/18 - Exam Vitals: Temp Pulse Resp BP Pulse Ox 98.4 F 87 20 177/90 91 10/06/18 13:28 10/06/18 13:28 10/06/18 13:28 10/06/18 13:28 10/06/18 13:28 - Assessment and Plan (1) Mass of upper lobe of left lung Current Visit: Yes Status: Acute (2) COPD (chronic obstructive pulmonary disease) Current Visit: Yes Status: Chronic (3) Anemia Current Visit: Yes Status: Acute (4) Tobacco use Current Visit: Yes Status: Chronic (5) Chronic respiratory failure with hypoxia Current Visit: Yes Status: Chronic (6) Hyponatremia Current Visit: Yes Status: Acute (7) HTN (hypertension) Current Visit: Yes Status: Chronic (8) Pneumonia Current Visit: Yes Status: Suspected (9) Small cell lung cancer, left upper lobe Current Visit: Yes Status: Suspected - Time Spent with Patient Total time spent is greater than 50% in coordination of care (as documented) at patient's floor/unit and/or counseling patient: Internal Medicine: Result - Labs CBC & Chem 7: 10/06/18 02:46 10/06/18 02:46 Labs: Short CBC 10/06/18 Range/Units 02:46 WBC 26.6 H (4.3-11.1) K/mcL Hgb 9.5 L (12.9-16.9) g/dL Hct 31.2 L (37.5-50.1) % Plt Count 498 H (140-400) K/mcL Neutrophils # 21.5 H (1.6-8.9) K/mcL BMP 10/06/18 02:46 Sodium 130 L Potassium 4.5 Chloride 93 L Carbon Dioxide 31 H BUN 18 Creatinine 0.73 Glucose 136 H Calcium 9.7 - ABG Interpretation ABG results: PT/INR, D-dimer PT 13.9 Seconds (9.4-12.1) H 10/05/18 05:27 - Impressions Impressions Chest X-Ray 10/03/18 12:12 IMPRESSION: Large 8.2 x 5.9 cm left perihilar mass. Recommend CT chest with intravenous contrast for further evaluation. D/ / 10/03/2018 12:37:58 Aureliano Vicente MD / eri Interpreting Provider: Aureliano Vicente MD Echocardiogram 10/04/18 16:58 Impressions: Technically sub-optimal due to poor echocardiographic windows. LVEF 60-65%. Normal LV chamber size and function. Mild concentric left ventricular hypertrophy. Mild left ventricular diastolic dysfunction. Normal right ventricular structure and function. Mildly dilated left atrium. Aortic valve not well visualized. Moderate aortic stenosis suggested by Doppler. Mean gradient 35 mmHg. Peak velocity 3.6 m/s. Unable to estimate RVSP due to lack of TR jet. Left Ventricular Wall Motion: Rest Echo Findings All wall segments showed normal motion. Findings: Study Quality * Technically sub-optimal due to poor echocardiographic windows. ECG Findings * Normal sinus rhythm. Left Ventricle * LVEF 60-65%. * Normal LV chamber size and function. * Mild concentric left ventricular hypertrophy. * Mild left ventricular diastolic dysfunction. Right Ventricle * Grossly normal right ventricular structure and function. Left Atrium * Mildly dilated left atrium. Right Atrium * Mildly dilated right atrium. Interatrial Septum * Interatrial septum not well evaluated. Aortic Valve * Aortic valve not well visualized. * Moderate aortic stenosis suggested by Doppler. Mean gradient 35 mmHg. Peak velocity 3.6 m/s. * No aortic regurgitation. Mitral Valve * Normal mitral valve structure and function. * No mitral stenosis. * No mitral regurgitation. Tricuspid Valve * Tricuspid valve not well visualized. * No tricuspid regurgitation. * Unable to estimate RVSP due to lack of TR jet. Pulmonic Valve * Pulmonic valve not well visualized. Aorta * Normally sized aortic root. Pericardium * The pericardium appears normal. IVC * The IVC is not well evaluated. Pulmonary Artery * Pulmonary artery not well visualized. Head MRI 10/05/18 16:27 IMPRESSION: No acute infarct or brain metastases identified. D/ / Wilman Lam MD / Wilman Lam MD Interpreting Provider: Wilman Lam MD Consult Discharge Plan - Plan Referrals: Michael,Dyllan K, DO [Primary Care Provider] - - Attending Attestation I examined this patient and my medical decision-making was reviewed with the Resident Physician. I agree with the documented findings, disposition and treatment plan as described except to the extent set forth below. Patient seen and examined at bedside. Patient states that he feels good today. Denies any, shortness of breath, cough, or hemoptysis. Lungs are diminished bilaterally, no rales, rhonchi, wheezes appreciated. 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 Oncology evaluated the patient, MRI of the brain performed and reviewed and shows no evidence of brain metastasis. Hypertension: Blood pressure under much better control today after starting amlodipine 10 mg. We will continue this. <Rachel Vernon - Last Filed: 10/06/18 17:34> Hospitalist Progress Note - Encounter Date of Encounter: 10/06/18 Time of Encounter: 08:38 - Subjective Interval History: Patient was seen and examined at bedside this morning. Accompanied by daughter and . Plan for bronchoscopy this morning by pulmonology. Otherwise, patient resting comfortably, in no acute distress. Vitals hemodynamically stable. Blood pressures improved. Patient remains on 4 L are navarro via nasal cannula. Oxygen saturation appropriate. Otherwise, currently on Zosyn, Solu- Medrol 40 mg every 8 hours, scheduled DuoNeb's. - Exam Vitals: Temp Pulse Resp BP Pulse Ox 98 F 86 16 100/52 96 10/06/18 06:50 10/06/18 06:50 10/06/18 06:50 10/06/18 06:50 10/06/18 06:50 Exam: GEN: Pleasant 77-year-old male resting comfortably in bed. Vitals stable. No acute distress. AAOx3 HEENT: Atraumatic, Normocephalic, PERRLA, EOMI NECK: Supple, no lymphadenopathy, no JVD CARDIAC: RRR, s1 and s2 present, no murmurs, rubs, gallops. 3/6 systolic murmur best heard at the right sternal border. PULM: Wheezing significantly improved. Only mild wheezing bilaterally. Slight decreased breath sounds at bilateral lung bases. No respiratory distress. No rhonchi, crackles, rales. Oxygen saturation appropriate on 4 L via nasal cannula ABD: Soft, non-tender, non-distended, no guarding or rebound tenderness. Bowel sounds present EXT: No peripheral edema. No calf tenderness, cyanosis, clubbing NEURO: CN 2-12 grossly intact. No focal neurologic deficits. Follows commands PSYCH: Appropriate mood and affect - Assessment and Plan (1) Mass of upper lobe of left lung Current Visit: Yes Status: Acute Assessment and Plan: This is a 77-year-old male with past medical history significant for COPD (on home oxygen, but does not use it), CAD (left heart catheter in December 2016 with no stents placed), hypertension, GERD who initially presented via EMS for increased shortness of breath for 2 weeks prior to presentation, blurred vision from right eye. - Shortness of breath had been progressively worsening for weeks, and worsening over the past couple days - Patient does not wear oxygen at home. He does use his nebulizer machine daily, and has been increasingly using it in the days leading up to presentation. Additionally uses rescue inhaler. - Associated symptoms include fevers/chills, diaphoresis, lethargy, fatigue, decreased appetite - Also notes multiple visits to PCP given persistent shortness of breath and cough. Prescribed steroids, antibiotics, medication to suppress cough - Patient has greater than 50 year smoking history - Initially in the ED, patient was hemodynamically stable. Stroke alert was initially called to right eye blurriness. - Patient did have leukocytosis = 19.2, anemia with hemoglobin = 9.7, platelets = 421. - Sodium = 132, bicarbonate = 32. Lactic acid trended down from 2.0-1.4. Troponin was negative. - Head CT (10/03/18): No acute intracranial abnormality. Diffuse atrophic changes with findings suggesting chronic microvascular ischemia - Chest x-ray (10/03/18): Large 8.2 x 5.9 cm left perihilar mass - CT chest (10/03/18): Large mass in left upper lobe abutting both the mediastinum and anterior pleural surface. Suggestive of bronchogenic carcinoma. Additionally, multiple tiny solid nodules observed within both the left upper and lower middle lobes. Mediastinal lymph node enlargement. Numerous ill- defined lesions scattered throughout liver. Additional findings represent possible metastatic disease. - CTA of the head/neck (10/03/18): No hemodynamically significant stenosis or branch occlusion and cervical arterial circulation, or intracranial arterial circulation. Calcified atherosclerotic plaque in the cavernous segment of internal carotid arteries bilaterally resulting in moderate cavernous ICA stenosis. - Head MRI and (10/05/18): No acute infarction or brain metastasis identified - Bronchoscopy (10/06/18): Mucous plug found in the right upper lobe and in the left upper lobe. Thick mucoid secretions found throughout the tracheobronchial tree. Transbronchial needle aspiration performed. EBUS was performed. BAL performed. Preliminary cytology of lesion in left upper lobe was suggestive of malignancy. Follow-up bronchoalveolar lavage, biopsy, culture, cytology results. PLAN: Patient presents with lung mass concerning for malignancy with metastasis. Chest x-ray and CT confirmed this suspicion. He will require further evaluation by pulmonology. Lung mass additionally probably contributing to postobstructive pneumonia. - Pulmonology consulted. Recommendations appreciated. - Oncology consulted. Recommendations appreciated. Plan for oncology appointment 10 days after discharge. Additionally will follow up with outpatient PET scan - Continue with Solu-Medrol 40 mg every 8 hours, and scheduled DuoNeb's; we will transition to by mouth prednisone at time of discharge. Transition to 40 mg daily - Continue supplemental oxygen as needed; titrate to keep oxygen greater than 88% - F/u nasal mrsa swab; follow-up blood cultures and sputum cultures - Follow-up bronchoalveolar lavage, biopsy, culture, cytology results. (2) Pneumonia Current Visit: Yes Status: Suspected Assessment and Plan: Patient presents with shortness of breath that is worsened over the past 2 weeks - Patient does not wear oxygen at home. He does use his nebulizer machine daily, and has been increasingly using it in the days leading up to presentation. Additionally uses rescue inhaler. - Associated symptoms include fevers/chills, diaphoresis, lethargy, fatigue, decreased appetite - Chest x-ray (10/03/18): Large 8.2 x 5.9 cm left perihilar mass - CT chest (10/03/18): Large mass in left upper lobe abutting both the mediastinum and anterior pleural surface. Suggestive of bronchogenic carcinoma. Additionally, multiple tiny solid nodules observed within both the left upper a nd lower middle lobes. Mediastinal lymph node enlargement. Numerous ill- defined lesions scattered throughout liver. Additional findings represent possible metastatic disease. - Patiently technically does meet sepsis criteria given his leukocytosis, tachycardia. He has remained afebrile. However, leukocytosis is worsening = 26.6 today. Cultures are pending. PLAN: Patient likely has postobstructive pneumonia given large left upper lobe lung mass - Continue with IV Zosyn - Continue to monitor for worsening leukocytosis and fevers - Repeat chest x-ray if necessary, with no improvement - Patient is improved on physical exam today. Continue IV steroids and continue breathing treatments. (3) COPD (chronic obstructive pulmonary disease) Current Visit: Yes Status: Chronic Assessment and Plan: History of COPD. Per family, patient should be on oxygen at baseline, but does not wear oxygen at home. - Patient has been increasingly using his nebulizer and rescue inhaler PLAN: Patient did likely have acute COPD exacerbation, secondary to possible postobstructive pneumonia and/or left upper lobe lung mass - We will treat with Solu-Medrol 40 mg every 8 hours; transition to 40 mg by mouth prednisone daily on discharge. - Scheduled DuoNeb - Continue with antibiotic; we will transition to Levaquin 750 mg daily and complete for 7 days total antibiotics. - Continue supplemental oxygen as needed. Titrate to keep oxygen greater than 88%. - Monitor for worsening signs and symptoms of respiratory distress (4) Chronic respiratory failure with hypoxia Current Visit: Yes Status: Chronic Assessment and Plan: Hx of COPD, supposed to be on home oxygen, but has not been using O2 PLAN: - Cont supplemental oxygen as needed; titrate to keep O2 > 88% - Otherwise, plan as above (5) Leukocytosis Current Visit: Yes Status: Acute Assessment and Plan: Patient had elevated white count = 19.2 on admission - Neutrophil predominant - Associated with fevers/chills, diaphoresis, decreased appetite, fatigue, lethargy - Chest x-ray and CT chest do show lung mass - Patient continues to have worsening leukocytosis. WBC = 26.6 today PLAN: Patient has lung mass evident on chest x-ray and CT chest. Less likely infectious etiology (pneumonia). However patient does have recent steroid use as well. - Continue to trend white count - Continue with Zosyn - Follow up with urine, sputum and blood cultures (6) Hyponatremia Current Visit: Yes Status: Acute Assessment and Plan: Noted to have hyponatremia on admission. Sodium = 132. 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 SIADH supported with high urine osmolality, high urine sodium, low serum osmolality - Continue to monitor BMP (7) Anemia Current Visit: Yes Status: Acute Assessment and Plan: Patient is anemic on presentation. - Hb = 9.7 - Family does report a 2 point change in patient's hemoglobin from baseline - Otherwise no signs of acute bleeding by history or on exam - Normal MCV - Iron Studies: Iron = 30, percent saturation = 15, transferrin = 140, ferritin = 548 - Hemoglobin = 9.5 today. Appears to be at baseline. PLAN: Anemia may be due to chronic disease. - Continue to monitor for signs of bleeding - Continue to monitor with CBC (8) Tobacco use Current Visit: Yes Status: Chronic Assessment and Plan: Patient reports [id number] smoking history PLAN: - Encourage smoking cessation (9) HTN (hypertension) Current Visit: Yes Status: Chronic Assessment and Plan: Patient noted to have hypertension prior to bronchoscopy procedure yesterday. - He was not on home anti hypertensives. - Blood pressure improved today. PLAN: - Started on amlodipine 10 mg daily. We will continue. - When necessary hydralazine (10) DVT prophylaxis Current Visit: Yes Status: Acute Assessment and Plan: PLAN: - Heparin SQ BID DVT Prophylaxis: Heparin SQ BID - Time Spent with Patient Total time spent is greater than 50% in coordination of care (as documented) at patient's floor/unit and/or counseling patient: less than 15 minutes Plan of Care Discussed with: patient Internal Medicine: Result - Labs CBC & Chem 7: 10/06/18 02:46 10/06/18 02:46 Labs: Short CBC 10/06/18 Range/Units 02:46 WBC 26.6 H (4.3-11.1) K/mcL Hgb 9.5 L (12.9-16.9) g/dL Hct 31.2 L (37.5-50.1) % Plt Count 498 H (140-400) K/mcL Neutrophils # 21.5 H (1.6-8.9) K/mcL BMP 10/06/18 02:46 Sodium 130 L Potassium 4.5 Chloride 93 L Carbon Dioxide 31 H BUN 18 Creatinine 0.73 Glucose 136 H Calcium 9.7 - ABG Interpretation ABG results: PT/INR, D-dimer PT 13.9 Seconds (9.4-12.1) H 10/05/18 05:27 - Impressions Impressions Echocardiogram 10/04/18 16:58 Impressions: Technically sub-optimal due to poor echocardiographic windows. LVEF 60-65%. Normal LV chamber size and function. Mild concentric left ventricular hypertrophy. Mild left ventricular diastolic dysfunction. Normal right ventricular structure and function. Mildly dilated left atrium. Aortic valve not well visualized. Moderate aortic stenosis suggested by Doppler. Mean gradient 35 mmHg. Peak velocity 3.6 m/s. Unable to estimate RVSP due to lack of TR jet. Left Ventricular Wall Motion: Rest Echo Findings All wall segments showed normal motion. Findings: Study Quality * Technically sub-optimal due to poor echocardiographic windows. ECG Findings * Normal sinus rhythm. Left Ventricle * LVEF 60-65%. * Normal LV chamber size and function. * Mild concentric left ventricular hypertrophy. * Mild left ventricular diastolic dysfunction. Right Ventricle * Grossly normal right ventricular structure and function. Left Atrium * Mildly dilated left atrium. Right Atrium * Mildly dilated right atrium. Interatrial Septum * Interatrial septum not well evaluated. Aortic Valve * Aortic valve not well visualized. * Moderate aortic stenosis suggested by Doppler. Mean gradient 35 mmHg. Peak velocity 3.6 m/s. * No aortic regurgitation. Mitral Valve * Normal mitral valve structure and function. * No mitral stenosis. * No mitral regurgitation. Tricuspid Valve * Tricuspid valve not well visualized. * No tricuspid regurgitation. * Unable to estimate RVSP due to lack of TR jet. Pulmonic Valve * Pulmonic valve not well visualized. Aorta * Normally sized aortic root. Pericardium * The pericardium appears normal. IVC * The IVC is not well evaluated. Pulmonary Artery * Pulmonary artery not well visualized. Head MRI 10/05/18 16:27 IMPRESSION: No acute infarct or brain metastases identified. 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 (7) HTN (hypertension) Qualifiers: Hypertension type: essential hypertension Qualified Code(s): I10 - Essential (primary) hypertension (8) Pneumonia Qualifiers: Pneumonia type: due to other aerobic Gram-negative bacteria Laterality: left Lung location: upper lobe of lung Qualified Code(s): J15.6 - Pneumonia due to other Gram-negative bacteria <Rachel Vernon - Last Filed: 10/06/18 17:34> (2) Pneumonia Qualifiers: Pneumonia type: due to other aerobic Gram-negative bacteria Laterality: left Lung location: upper lobe of lung Qualified Code(s): J15.6 - Pneumonia due to other Gram-negative bacteria (3) COPD (chronic obstructive pulmonary disease) Qualifiers: COPD type: emphysema Emphysema type: panlobular Qualified Code(s): J43.1 - Panlobular emphysema (5) Leukocytosis Qualifiers: Leukocytosis type: unspecified Qualified Code(s): D72.829 - Elevated white blood cell count, unspecified (7) Anemia Qualifiers: Anemia type: other cause Other causes of anemia: chronic disease, neoplastic Qualified 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 (9) HTN (hypertension) Qualifiers: Hypertension type: essential hypertension Qualified Code(s): I10 - Essential (primary) hypertension
[2018-10-06] MEDS ORDERED: Ondansetron 4 MG/2 ML VIAL ONE (09:32)
[2018-10-06] MEDS ORDERED: Lidocaine -MPF 2% 2 ML VIAL ONE (09:32)
[2018-10-06] MEDS ORDERED: Lidocaine -MPF 4% 5 ML AMPUL ONE (09:32)
[2018-10-06] MEDS ORDERED: Dexamethasone 4 MG/ML VIAL ONE (09:32)
[2018-10-06] MEDS ORDERED: *HR* Propofol 200 MG/20 ML VIAL IVP ONE (09:55)
[2018-10-06] MEDS ORDERED: *HR* FentaNYL (PF) 100 MCG/2 ML VIAL ONE (09:55)
[2018-10-06] MEDS ORDERED: *HR* PHENYLEPHRINE 1,000 MCG/10 ML SYRINGE IVP ONE (11:06)
[2018-10-06] MEDS ORDERED: *HR* Metoprolol 5 MG/5 ML VIAL IVP ONE (11:46)
[2018-10-06] MEDS ORDERED: *HR* EPINEPHrine 1 MG/10 ML SYRINGE INTRATRACH PRN (12:35)
[2018-10-06] MEDS ORDERED: *HR* EPINEPHrine 1 MG/10 ML SYRINGE ONE (12:36)
[2018-10-06] MEDS ORDERED: Ringers Solution, Lactated 1,000 ML ONE (12:58)
--- NOTE | 2018-10-06 13:12 | Anesthesia Evaluation Post Op ---
Date of Encounter: 10/06/18 Time of Encounter: 13:09 - Vital Signs Vital Signs: Vital Signs/O2 Sat/Glucose, Most Recent Temp Pulse Resp BP Pulse Ox 98.8 F 97 20 161/88 90 10/06/18 12:48 10/06/18 12:58 10/06/18 12:58 10/06/18 12:58 10/06/18 12:58 Blood Glucose* 138 - Lungs Lungs: Wheezes, Treatment Ordered (DUONEB ordered prior to transfer to floor, Dr. Hua notified, baseline respiratory status otherwise noted on O2/5L/SFM) - Airway Airway: Non-obstructed - Cardiovascular Regular Rate - Mental Status Mental Status: Alert & Oriented, Answers Appropriately - Pain Pain Scale: 0 - Nausea Vomiting Nausea Vomiting: Not Present - Hydration Hydration: Ice chips, Has not voided Notes: 10/06/18 13:17. Patient as per pre op baseline, VSS with no complaints, receiving DUONEB Tx at this time prior to discharge to floor - Discharge PostOp Status: Transfer Patient to floor
[2018-10-06 14:35] LABS: Source of Body Fluid LUL BAL
--- NOTE | 2018-10-06 16:02 | Oncology Inp Progress Note ---
Date of Encounter: 10/06/18 Time of Encounter: 17:00 (1) Mass of upper lobe of left lung Current Visit: Yes Status: Acute Assessment and plan: Llarge mass in the left upper lobe abutting both the mediastinum and the anterior pleural surface. Multiple tiny solid nodules are otherwise observed within both the left upper and lower lobes. Mediastinal lymph node enlargement also suspected to be metastatic. Numerous ill-defined lesions are scattered throughout the visualized liver. This is concerning for primary lung cancer with metastatic spread. Bronch with biopsy completed. Outpatient PET/CT will be arranged after biopsy completed. He desires to return home tomorrow which I think is reasonable if deemed physically able/safe. (2) Neutrophilic leukocytosis Current Visit: Yes Status: Acute Assessment and plan: Reactive neutrophil predominant leukocytosis. Likely secondary to underlying malignancy and steroids. No further evaluation necessary at this time and will follow as an outpatient. Oncology: Subj Interval history: Mr. Resendiz completed his bronchoscopy today. Tissue sampling was successful by preliminary results. He is going or resting comfortable receiving a nebulizer treatment. Still with dyspnea on exertion. Still with cough. Cough is going nonproductive. He did have some bleeding after his biopsy per his . He plans to stay overnight and hopefully be discharged home tomorrow. - Constitutional General appearance: no acute distress, obese - Head Head exam: Present: atraumatic, normal inspection, normocephalic - Eye Eye exam: Present: normal appearance, conjuntiva pink, sclera anicteric - ENT ENT exam: Present: mucous membranes moist, normal oropharynx - Neck Neck exam: Present: full ROM, normal inspection - Respiratory Respiratory exam: Present: decreased breath sounds - Cardiovascular Cardiovascular exam: Present: RRR - GI/Abdominal GI/Abdominal exam: Present: normal bowel sounds, soft - Extremities Exam Extremities exam: Present: normal inspection, pedal edema - Neurological Exam Neurological exam: Present: alert, CN II-XII intact, oriented X3 Oncology: Obj Data - Labs CBC & Chem 7: 10/06/18 02:46 10/06/18 02:46 - Impressions MRI OF THE BRAIN WITHOUT AND WITH CONTRAST 10/05/2018 8:31 pm FINDINGS: INTRACRANIAL STRUCTURES/VENTRICLES: There is no acute infarct. There is volume loss with mild chronic white matter microvascular ischemic disease characterized by confluent periventricular white matter signal abnormality. No acute intracranial mass, shift, or bleed is identified. No abnormal enhancement is visualized after contrast administration. ORBITS: The visualized portion of the orbits demonstrate no acute abnormality. SINUSES: The visualized paranasal sinuses and mastoid air cells are well aerated. BONES/SOFT TISSUES: The bone marrow signal intensity appears normal. The soft tissues demonstrate no acute abnormality. MR/MR head wo/w con IMPRESSION: No acute infarct or brain metastases identified. Consult Discharge Plan - Plan Referrals: Dyllan Rodriguez DO [Primary Care Provider] - Inpatient Charges Provider: Dr. Maryann Naik Follow up - Inpatient: [id number]
[2018-10-06 18:43] LABS: Bilirubin,Urine Negative (Negative); Blood,Urine Negative (Negative); Clarity,Urine Clear (Clear); Color,Urine Yellow (Yellow); Glucose,Urine (UA) Normal (Normal); Ketones,Urine Negative (Negative); Leukocyte Esterase,Urine Negative (Negative); Nitrite,Urine Negative (Negative); Protein,Urine 30 mg/dL (Neg-Trace); Specific Gravity,Urine 1.027 (1.010-1.025); Urobilinogen,Urine Normal (Normal)
[2018-10-06 18:50] LABS: Bacteria,Urine None Seen per hpf (None-Few); Hyaline Casts,Urine None Seen per lpf (None-Few); RBC,Urine 0-3 per hpf (0-3); Squamous Epithelial Cell,Urine Many per lpf (None-Few); WBC,Urine 0-3 per hpf (0-3)
[2018-10-06] MEDS: amLODIPine 5 MG TABLET PO SCH (19:58)
[2018-10-06 20:54] LABS: Appearance of Body Fluid Cloudy (Clear); Volume of Body Fluid 15 mL
[2018-10-07] MEDS: Ipratropium/Albuterol Neb 3 ML IH SCH ×2 (03:46→09:56)
[2018-10-07 06:27] LABS: Basophils % 0.2 %; Eosinophils % 0.1 %; Hematocrit 30.2 % (37.5-50.1); Hemoglobin 9.3 g/dL (12.9-16.9); Immature Granulocytes % 2.6 % (0-4); Lymphocytes # 1.1 K/mcL (0.6-4.6); Lymphocytes % 4.5 %; Mean Corpuscular HGB Conc 30.8 g/dL (31.6-35.5); Mean Corpuscular Hemoglobin 28.4 pg (28.0-33.3); Mean Corpuscular Volume 92.4 fL (83.0-100.0); Mean Platelet Volume 9.3 fL (9.4-12.4); Monocytes % 12.3 %; Neutrophils # 19.4 K/mcL (1.6-8.9); Platelet Count 475 K/mcL (140-400); Red Blood Count 3.27 M/mcL (4.19-5.50); Red Cell Distribution Width 15.7 % (11.5-14.5); Segmented Neutrophils % 80.3 %; White Blood Count 24.1 K/mcL (4.3-11.1)
[2018-10-07] MEDS: *HR* Heparin 5,000 UNIT/ML VIAL SQ SCH (06:44)
[2018-10-07 06:46] LABS: BUN/Creatinine Ratio 30 (6-26); Blood Urea Nitrogen 24 mg/dL (8-23); Calcium 9.6 mg/dL (8.6-10.3); Carbon Dioxide 31 mEq/L (23-29); Chloride 94 mEq/L (98-107); Glucose 149 mg/dL (70-105); Magnesium 2.2 mg/dL (1.6-2.6); Osmolality,Calculated 283 (280-300); Phosphorous 3.5 mg/dL (2.7-4.5); Potassium 4.4 mEq/L (3.5-5.1); Sodium 133 mEq/L (136-145); eGFR For African Americans > 60 (> 60); eGFR For Non-African Americans > 60 (> 60)
[2018-10-07 06:52] VITALS: BP 129/71
--- NOTE | 2018-10-07 07:49 | Discharge Summary ---
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 Orders not resulted at time of discharge: Pending orders 10/03/18 17:48 Culture,Blood [BC] Routine Sputum Culture [Culture,Sputum with Gram Stain] [RM] Routine 10/06/18 12:26 AFB Culture, Respiratory [TB] Routine Culture,Respiratory [RM] Routine Fungal Culture [MYC] Routine 10/06/18 12:41 Cytology [PTH] Routine Date of Encounter: 10/07/18 Time of Encounter: 07:45 - Discharge Diagnosis (1) Mass of upper lobe of left lung Priority: Primary Status: Acute (2) COPD (chronic obstructive pulmonary disease) Priority: Secondary Status: Chronic Qualifiers: COPD type: emphysema Emphysema type: panlobular Qualified Code(s): J43.1 - Panlobular emphysema (3) Anemia Priority: Secondary Status: Acute Qualifiers: Anemia type: other cause Other causes of anemia: chronic disease, neoplastic Qualified 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 (4) Tobacco use Priority: Secondary Status: Chronic (5) Chronic respiratory failure with hypoxia Priority: Secondary Status: Chronic (6) Hyponatremia Priority: Secondary Status: Acute (7) HTN (hypertension) Priority: Secondary Status: Chronic Qualifiers: Hypertension type: essential hypertension Qualified Code(s): I10 - Essential (primary) hypertension (8) Pneumonia Priority: Primary Status: Suspected Qualifiers: Pneumonia type: due to other aerobic Gram-negative bacteria Laterality: left Lung location: upper lobe of lung Qualified Code(s): J15.6 - Pneumonia due to other Gram-negative bacteria Hospital course: Mr. Resendiz is a 77 year old male with history of COPD, chronic respiratory failur e who presents with increasing shortness of breath. Patient underwent CT scan of the chest that revealed a large lung mass with mediastinal lymphadenopathy as well as lesions in the liver. Pulmonology was consulted and patient underwent bronchoscopy with EBUS. 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 Patient was evaluated by oncology and underwent brain MRI that was negative for any brain metastasis. Patient was seen by PT as well as OT who recommended home services were patient adamantly refuses. He does have a walker and good family support at home. Patient will be discharged home in stable condition for outpatient follow-up with pulmonology and oncology. Discharge discussed with: patient, family - Time Spent with Patient Total time spent providing and/or coordinating discharge services: Time spent: Less than 30 minutes - Discharge Medications Prescriptions: New Amoxicillin/Clavulanate [Augmentin] 875 mg PO BIDWM #6 tablet amLODIPine [Norvasc] 10 mg PO HS #30 tablet predniSONE [PredniSONE] 40 mg PO DAILY #2 tablet Continued Tizanidine HCl [Zanaflex] 4 mg PO TID PRN PRN Reason: Pain Omeprazole [PriLOSEC] 20 mg PO DAILY Ipratropium/Albuterol Neb [Duoneb] 3 ml IH Q4HR PRN PRN Reason: Shortness Of Breath Fluticasone Propionate Nasal [Flonase] 1 - 2 spray NS DAILY PRN PRN Reason: Allergy Symptoms Albuterol Sulfate [Albuterol Inhaler] 1 - 2 puff IH Q4-6H PRN PRN Reason: Shortness Of Breath Guaifenesin/Dm/Pseudoephedrine [Capmist Dm Tablet] 1 tab PO Q6H PRN PRN Reason: Congestion Home Medications: Omeprazole [PriLOSEC] 20 mg PO DAILY 12/24/16 [History] Tizanidine HCl [Zanaflex] 4 mg PO TID PRN 12/24/16 [History] Albuterol Sulfate [Albuterol Inhaler] 1 - 2 puff IH Q4-6H PRN 10/03/18 [History] Fluticasone Propionate Nasal [Flonase] 1 - 2 spray NS DAILY PRN 10/03/18 [History] Guaifenesin/Dm/Pseudoephedrine [Capmist Dm Tablet] 1 tab PO Q6H PRN 10/03/18 [History] Ipratropium/Albuterol Neb [Duoneb] 3 ml IH Q4HR PRN 10/03/18 [History] Amoxicillin/Clavulanate [Augmentin] 875 mg PO BIDWM #6 tablet 10/07/18 [Rx] amLODIPine [Norvasc] 10 mg PO HS #30 tablet 10/07/18 [Rx] predniSONE [PredniSONE] 40 mg PO DAILY #2 tablet 10/07/18 [Rx] Allergies/Adverse Reactions: Allergy/AdvReac Type Severity Reaction Status Date / Time cetirizine [From Zyrtec] Allergy See Verified 12/24/16 07:51 Comments clonazepam [From Klonopin] Allergy Nausea Verified 12/24/16 07:51 lisinopril Allergy See Verified 12/24/16 07:51 Comments quinine Allergy Nausea Verified 12/24/16 07:51 Date of admission: 10/03/18 14:57 Primary care physician: Dyllan Rodriguez DO Consults: 10/03/18 17:16 Consult to Pulmonology [CONS] Routine Consulting Provider: [facility] Reason for Consult: Left lung mass on CT concerning for malignancy with possible lymph node and liver mets--candidate for bronchoscopy, biopsy? Eval and recs appreciated. Call Completed: No 10/03/18 17:40 Consult to Traffic Investigator [CONS] Routine Reason for SW Consult: Discharge planning 10/04/18 08:05 Consult to Nurse Navigator [CONS] Routine Comment: pna 10/04/18 09:56 Consult to Occupational Therapy [CONS] Routine Comment: Evaluate, develop and implement POC Reason for Consult: weakness, deconditioning Does patient have active BEDREST order?: No Is patient medically & hemodynamically stable?: Yes Patient assessed for mobility or mobilized this visit?: No Consult to Physical Therapy [CONS] Routine Comment: Evaluate, develop and implement POC Reason for Consult: weakness, deconditioning Does patient have active BEDREST order?: No Is patient medically & hemodynamically stable?: Yes Patient assessed for mobility or mobilized this visit?: No 10/04/18 17:53 Consult to Oncology [CONS] Routine Consulting Provider: [facility] Reason for Consult: Left upper lobe lung mass with liver mets on CT. Plan for EBUS tomorrow. Spoke with Dr. Naik. Time Notified: 17:53 Call Completed: Yes Discharging clinician: Christ Gonzales Anticipated date of discharge: 10/07/18 - Constitutional Vitals: Temp Pulse Resp BP Pulse Ox 98.1 F 86 16 129/71 82 10/07/18 06:39 10/07/18 06:39 10/07/18 06:39 10/07/18 06:39 10/07/18 06:39 General appearance: Present: A&O X 3, pleasant, no acute distress Exam: . - Respiratory Respiratory exam: Present: decreased breath sounds. Absent: rales, rhonchi, wheezes - Cardiovascular Cardiovascular exam: Present: RRR, systolic murmur (3/6). Absent: gallop, rubs - Patient Status Disposition: Home, Self-Care Condition: Good Functional capacity at discharge: independent ambulation Overall status at discharge: patient is progressing back to baseline - Discharge Instructions Follow Up With: Dyllan Rodriguez DO [Primary Care Provider] - (1 week) Maximino Rodriguez MD [Partnered Physician] - (2-4 weeks) Joseph Naik MD [Partnered Physician] - (1 week) Forms: ED Satisfaction Letter Additional Instructions: Please follow-up with your PCP within one week. Please follow-up with pulmonology and oncology as scheduled. Please take your antibiotic and steroid until complete. Please resume your other home medications. Please wear oxygen as directed. Please return for new or worsening symptoms. - Diet and Activity Activity: ambulate only with your walker, wear oxygen at all times Diet: low salt diet
[2018-10-07] MEDS: Piperacillin/Tazobactam 3.375 GM in 0.9 % Sodium Chloride Mini Bag 100 ML IVPB SCH (08:42)
[2018-10-07] MEDS: MethylPREDNISolone 40 MG/ML VIAL IVP SCH (08:44)
== END 2018-10-07 10:31 | disposition home or self-care (01) | DRG 166 ==
LOC: EMEROOARM 11:50 → 3ANU 11:50 → SUATTDRO 14:57 → 3ANU 17:19
PROVIDERS: ADMIT Internal Medicine; ATTEND Internal Medicine